=== PATIENT | male | born 1940 | race Caucasian/White ===

== ENCOUNTER 2018-12-20 11:36 | Inpatient (IN) | payer MEDICARE, MEDICAID ==
[~2018-12-20] VITALS: Ht 188 cm; Wt 128.6 kg
--- NOTE | 2018-12-20 12:17 | PHYS DOC ---
Past History Past Medical History: Anemia, Anxiety, CHF, Depression, DVT, Hypertension, Seizure, Other Additional Past Medical Histor: SLEEP APNEA, HALLUCINATIONS, EDEMA, KIERAN, SEPSIS, HYPOKALEMIA, BRADYCARDIA, Past Surgical History: Other Alcohol Use: None Drug Use: None Adult General Chief Complaint Chief Complaint: PSYCH EVALUATION HPI HPI 78-year-old male presents for medical clearance for psychiatric evaluation. The patient was reported to be making inappropriate statements toward females his care facility. He was also yelling at staff. The patient denies any medical complaints to me. He does have some bilateral lower extremity venous insufficiency and swelling. The coloring of his lower legs has not changed recently. He has no other complaints at this time. Review of Systems Review of Systems Constitutional: Denies fever or chills [] Eyes: Denies change in visual acuity, redness, or eye pain [] HENT: Denies nasal congestion or sore throat [] Respiratory: Denies cough or shortness of breath [] Cardiovascular: No additional information not addressed in HPI [] GI: Denies abdominal pain, nausea, vomiting, bloody stools or diarrhea [] : Denies dysuria or hematuria [] Musculoskeletal: Denies back pain or joint pain [] Integument: Red lower extremity is bilaterally[] Neurologic: Denies headache, focal weakness or sensory changes [] Endocrine: Denies polyuria or polydipsia [] All other systems were reviewed and found to be within normal limits, except as documented in this note. Allergies Allergies Allergies Coded Allergies Type Severity Reaction Last Updated Verified No Known Drug Allergies 12/20/18 No Physical Exam Physical Exam Constitutional: Well developed, obese, well nourished, no acute distress, non- toxic appearance. [] HENT: Normocephalic, atraumatic, bilateral external ears normal, oropharynx moist, no oral exudates, nose normal. [] Eyes: PERRLA, EOMI, conjunctiva normal, no discharge. [] Neck: Normal range of motion, no tenderness, supple, no stridor. [] Cardiovascular:Heart rate regular rhythm, no murmur [] Lungs & Thorax: Bilateral breath sounds clear to auscultation [] Abdomen: Bowel sounds normal, soft, no tenderness, no masses, no pulsatile masses. [] Skin: Warm, dry, no rash. [] Back: No tenderness, no CVA tenderness. [] Extremities: No tenderness, no cyanosis, no clubbing, ROM intact. Bilateral lower extremity edema 2+, redness of lower extremity without warmth. [] Neurologic: Alert and oriented X 3, normal motor function, normal sensory function, no focal deficits noted. [] Psychologic: Affect normal, judgement normal, mood normal. [] Current Patient Data Vital Signs Vital Signs Date Time Temp Pulse Resp B/P (MAP) Pulse Ox O2 Delivery O2 Flow Rate FiO2 12/20/18 11:43 97.9 60 18 97 Room Air EKG EKG [] Radiology/Procedures Radiology/Procedures [] Course & Med Decision Making Course & Med Decision Making Pertinent Labs and Imaging studies reviewed. (See chart for details) The patient's urinalysis is unremarkable. His EKG shows type I heart block significantly delayed NC interval. Urinalysis suggests possible infection. I will treat him with 1 g Rocephin IM and then wait for cultures. He is medically stable for admission to [facility]. [] Dragon Disclaimer Dragon Disclaimer This electronic medical record was generated, in whole or in part, using a voice recognition dictation system. Departure Departure: Impression: Primary Impression: Medical clearance for psychiatric admission Additional Impression: UTI (urinary tract infection) Disposition: ADMITTED INPATIENT Condition: STABLE Referrals: FELA BAIG (PCP) Problem Qualifiers Additional Impression: UTI (urinary tract infection) Urinary tract infection type: acute cystitis Hematuria presence: with hematuria Qualified Codes: N30.01 - Acute cystitis with hematuria RAYMOND BARCLAY DO Dec 20, 2018 12:17
[2018-12-20 12:18] LABS: BASO % 0 % (0-3); EOS # 0.1 x10^3/uL (0.0-0.7); EOS % 2 % (0-3); HEMOGLOBIN 12.4 g/dL (13.0-17.5); LYMPH # 1.1 x10^3/uL (1.0-4.8); LYMPH % 18 % (24-48); MEAN CORPUSCULAR HEMOGLOBIN 26 pg (25-35); MEAN CORPUSCULAR HGB CONC 32 g/dL (31-37); MEAN CORPUSCULAR VOLUME 81 fL (79-100); MONO # 0.6 x10^3/uL (0.0-1.1); MONO % 9 % (0-9); NEUT # 4.4 x10^3uL (1.8-7.7); NEUT % 71 % (31-73); PLATELET COUNT 132 x10^3/uL (140-400); RED BLOOD COUNT 4.84 x10^6/uL (4.30-5.70); RED CELL DISTRIBUTION WIDTH 22.5 % (11.5-14.5); WHITE BLOOD COUNT 6.2 x10^3/uL (4.0-11.0)
[2018-12-20 12:28] LABS: ALBUMIN 3.1 g/dL (3.4-5.0); ALBUMIN/GLOBULIN RATIO 0.7 (1.0-1.7); CREATININE 1.3 mg/dL (0.7-1.3); GFR 53.3; MAGNESIUM 2.2 mg/dL (1.8-2.4); POTASSIUM 3.5 mmol/L (3.5-5.1); TOTAL BILIRUBIN 0.3 mg/dL (0.2-1.0); TOTAL PROTEIN 7.7 g/dL (6.4-8.2)
--- NOTE | 2018-12-20 12:42 | EKG ---
[address] [address] Test Date: 2018-12-20 Test Time: 12:17:52 Pat Name: USAMA LEONARD Department: Room: Gender: M Supervisor Costuming: AQUILINO : 1940 Requested By: RAYMOND BARCLAY Order Number: [id number] Reading MD: Adarsh Carballo MD Measurements Intervals [place] Rate: 56 P: AL: QRS: -3 QRSD: 110 T: 66 QT: 446 QTc: 433 Interpretive Statements SR 1ST DEGREE AVB Electronically Signed On 01-05-2019 14:53:50 CDT by Adarsh Carballo MD
[2018-12-20 12:47] LABS: BILIRUBIN,URINE NEG (NEG); CLARITY,URINE CLOUDY; COLOR,URINE YELLOW; GLUCOSE,URINE NEG (NEG); NITRITE,URINE NEG (NEG); RBC,URINE 0 /HPF (0-2); UROBILINOGEN,URINE 0.2 mg/dL (0.2 mg/dL)
[2018-12-20 12:48] LABS: BACTERIA,URINE FEW /HPF (0-FEW); SQUAMOUS EPITHELIAL CELL,UR OCC /LPF; YEAST,URINE PRESENT /HPF
[2018-12-20] MEDS ORDERED: cefTRIAXone IM 1 GM VIAL IM ONE (13:00)
[2018-12-20 13:05] LABS: ANISOCYTOSIS SLIGHT; PLT ESTIMATE DECREASED (ADEQUATE); POLYCHROMASIA SLIGHT
[2018-12-20 13:06] LABS: SPHEROCYTES OCC
[2018-12-20] MEDS ORDERED: MAG HYDROX/AL HYDROX/SIMETH 30 ML ORAL.SUSP PO PRN (14:30)
[2018-12-20] MEDS ORDERED: METHYL SALICYLATE/MENTHOL TOPICAL OINTMENT 57GM TUBE. TP PRN (14:30)
[2018-12-20] MEDS ORDERED: ACETAMINOPHEN 325 MG TABLET PO PRN (14:30)
[2018-12-20] MEDS ORDERED: MAGNESIUM HYDROXIDE 2,400 MG/30 ML ORAL.SUSP. PO PRN (14:30)
[2018-12-20 14:41] VITALS: BP 108/73
[2018-12-20] MEDS ORDERED: POLY17PO5 PO (15:31)
[2018-12-20] MEDS ORDERED: PENT400T7 PO (15:31)
[2018-12-20] MEDS ORDERED: SENN8.6T99 PO (15:31)
[2018-12-20] MEDS ORDERED: FURO80TA72 PO (15:31)
[2018-12-20] MEDS ORDERED: IBUP400T18 PO (15:31)
[2018-12-20] MEDS ORDERED: POTA10TA10 PO (15:31)
[2018-12-20] MEDS ORDERED: ALBU2.5V8 INH (15:31)
[2018-12-20] MEDS ORDERED: MECL25TA3 PO (15:31)
[2018-12-20] MEDS ORDERED: LORA-254 PO (15:31)
[2018-12-20] MEDS ORDERED: TAMS0.4C97 PO (15:31)
[2018-12-20] MEDS ORDERED: TRAZ-120 PO (15:31)
[2018-12-20] MEDS ORDERED: DIVA250T14 PO (15:31)
[2018-12-20] MEDS ORDERED: ALBUTEROL SULFATE 2.5 MG/3 ML NEBU. INH PRN (16:15)
[2018-12-20] MEDS ORDERED: LORazepam 0.5 MG TABLET PO PRN (16:15)
[2018-12-20] MEDS ORDERED: IBUPROFEN 400 MG TABLET. PO PRN (16:15)
[2018-12-20] MEDS ORDERED: IBUPROFEN 200 MG TABLET PO PRN (16:15)
[2018-12-20] MEDS ORDERED: MECLIZINE 12.5 MG TABLET. PO PRN (16:30)
[2018-12-20 16:59] VITALS: BP 114/73
[2018-12-20] MEDS: PENTOXIFYLLINE ER 400 MG TABLET.ER. PO SCH (18:03)
[2018-12-20] MEDS: FUROSEMIDE 80 MG TABLET PO SCH (18:03)
--- NOTE | 2018-12-20 18:43 | PDOC ---
Exam Note: Preet Note: Please also refer to the separate dictated note~for this date of service dictated separately.~Patient seen individually. Discussed the patient with Nursing staff reviewed the chart.~Reviewed interim history and current functioning. Reviewed vital signs,~Labs/ Radiology~and current medications noted below. Continue current treatment with the changes noted in the dictated addendum note Assessment: Vital Signs/I&O: Vital Signs Date Time Temp Pulse Resp B/P (MAP) Pulse Ox O2 Delivery O2 Flow Rate FiO2 12/20/18 16:59 97.6 78 18 114/73 (87) 93 12/20/18 11:43 Room Air Labs: Laboratory Tests Test 12/20/18 12:00 12/20/18 12:07 White Blood Count 6.2 x10^3/uL (4.0-11.0) Red Blood Count 4.84 x10^6/uL (4.30-5.70) Hemoglobin 12.4 g/dL (13.0-17.5) L Hematocrit 39.0 % (39.0-53.0) Mean Corpuscular Volume 81 fL (79-100) Mean Corpuscular Hemoglobin 26 pg (25-35) Mean Corpuscular Hemoglobin Concent 32 g/dL (31-37) Red Cell Distribution Width 22.5 % (11.5-14.5) H Platelet Count 132 x10^3/uL (140-400) L Neutrophils (%) (Auto) 71 % (31-73) Lymphocytes (%) (Auto) 18 % (24-48) L Monocytes (%) (Auto) 9 % (0-9) Eosinophils (%) (Auto) 2 % (0-3) Basophils (%) (Auto) 0 % (0-3) Neutrophils # (Auto) 4.4 x10^3uL (1.8-7.7) Lymphocytes # (Auto) 1.1 x10^3/uL (1.0-4.8) Monocytes # (Auto) 0.6 x10^3/uL (0.0-1.1) Eosinophils # (Auto) 0.1 x10^3/uL (0.0-0.7) Basophils # (Auto) 0.0 x10^3/uL (0.0-0.2) Platelet Estimate Decreased (ADEQUATE) Polychromasia Slight Anisocytosis Slight Spherocytes Occ Sodium Level 144 mmol/L (136-145) Potassium Level 3.5 mmol/L (3.5-5.1) Chloride Level 105 mmol/L (98-107) Carbon Dioxide Level 30 mmol/L (21-32) Anion Gap 9 (6-14) Blood Urea Nitrogen 27 mg/dL (8-26) H Creatinine 1.3 mg/dL (0.7-1.3) Estimated GFR (Cockcroft-Gault) 53.3 BUN/Creatinine Ratio 21 (6-20) H Glucose Level 94 mg/dL (70-99) Calcium Level 9.0 mg/dL (8.5-10.1) Magnesium Level 2.2 mg/dL (1.8-2.4) Total Bilirubin 0.3 mg/dL (0.2-1.0) Aspartate Amino Transferase (AST) 24 U/L (15-37) Alanine Aminotransferase (ALT) 30 U/L (16-63) Alkaline Phosphatase 96 U/L (46-116) Total Protein 7.7 g/dL (6.4-8.2) Albumin 3.1 g/dL (3.4-5.0) L Albumin/Globulin Ratio 0.7 (1.0-1.7) L Urine Collection Type Unknown Urine Color Yellow Urine Clarity Cloudy Urine pH 6.0 Urine Specific [place] 1.015 Urine Protein Neg (NEG-TRACE) Urine Glucose (UA) Neg mg/dL (NEG) Urine Ketones (Stick) Neg mg/dL (NEG) Urine Blood Neg (NEG) Urine Nitrite Neg (NEG) Urine Bilirubin Neg (NEG) Urine Urobilinogen Dipstick 0.2 mg/dL (0.2 mg/dL) Urine Leukocyte Esterase Small (NEG) Urine RBC 0 /HPF (0-2) Urine WBC 11-20 /HPF (0-4) Urine Squamous Epithelial Cells Occ /LPF Urine Bacteria Few /HPF (0-FEW) Urine Yeast Present /HPF Current Medications: Meds: Current Medications Medications (Trade) Dose Ordered Sig/Daren Route PRN Reason Start Time Stop Time Status Last Admin Dose Admin Ceftriaxone Sodium (Rocephin Im) 1 gm 1X ONCE IM 12/20/18 13:00 12/20/18 13:01 DC 12/20/18 13:03 Furosemide (Lasix) 100 mg [id number] PO 12/20/18 17:00 12/20/18 18:04 Pentoxifylline (TRENtal) 400 mg TIDWMEALS PO 12/20/18 17:00 12/20/18 18:04 I have reviewed the current psychotropics carefully including drug interactions. Risk benefit ratio favors no change other than as noted in my dictated progress note. Diagnosis: Problems: (1) Anxiety disorder (2) Dementia, vascular, with delusions (3) Dementia, vascular, with depression (4) Dementia in Alzheimer's disease with delusions (5) Dementia in Alzheimer's disease with depression (6) Impulse control disorder RANDALL SCHWARZ MD Dec 20, 2018 18:43
[2018-12-20] MEDS: traZODone 50 MG TABLET. PO SCH (20:10)
[2018-12-20] MEDS: POTASSIUM CHLORIDE 10 MEQ TABLET.ER. PO SCH (20:11)
[2018-12-21 06:00] VITALS: BP 90/68
[2018-12-21 08:18] LABS: BASO % 0 % (0-3); EOS # 0.2 x10^3/uL (0.0-0.7); EOS % 3 % (0-3); HEMATOCRIT 38.8 % (39.0-53.0); HEMOGLOBIN 12.4 g/dL (13.0-17.5); LYMPH # 1.1 x10^3/uL (1.0-4.8); LYMPH % 19 % (24-48); MEAN CORPUSCULAR HEMOGLOBIN 26 pg (25-35); MEAN CORPUSCULAR HGB CONC 32 g/dL (31-37); MEAN CORPUSCULAR VOLUME 81 fL (79-100); MONO # 0.5 x10^3/uL (0.0-1.1); MONO % 8 % (0-9); NEUT # 4.2 x10^3uL (1.8-7.7); NEUT % 70 % (31-73); PLATELET COUNT 129 x10^3/uL (140-400); RED BLOOD COUNT 4.82 x10^6/uL (4.30-5.70); RED CELL DISTRIBUTION WIDTH 22.5 % (11.5-14.5); WHITE BLOOD COUNT 5.9 x10^3/uL (4.0-11.0)
[2018-12-21 08:42] LABS: ALBUMIN 3.1 g/dL (3.4-5.0); ALBUMIN/GLOBULIN RATIO 0.7 (1.0-1.7); CALCIUM 9.1 mg/dL (8.5-10.1); CREATININE 1.2 mg/dL (0.7-1.3); GFR 58.4; MAGNESIUM 2.3 mg/dL (1.8-2.4); POTASSIUM 3.6 mmol/L (3.5-5.1); TOTAL BILIRUBIN 0.4 mg/dL (0.2-1.0); TOTAL PROTEIN 7.6 g/dL (6.4-8.2)
[2018-12-21 08:46] LABS: VAL ACID < 3 mcg/mL (50-100)
[2018-12-21] MEDS: PENTOXIFYLLINE ER 400 MG TABLET.ER. PO SCH ×3 (08:49→16:12)
[2018-12-21] MEDS: POTASSIUM CHLORIDE 10 MEQ TABLET.ER. PO SCH ×2 (08:50→20:43)
[2018-12-21] MEDS: FUROSEMIDE 80 MG TABLET PO SCH ×2 (08:50→16:12)
[2018-12-21] MEDS: NYSTATIN TOPICAL POWDER 15GM BOTTLE. TP SCH ×2 (08:55→20:43)
[2018-12-21] MEDS: TAMSULOSIN 0.4 MG CAP.ER.24H. PO SCH (08:55)
[2018-12-21] MEDS: POLYETHYLENE GLYCOL 3350 17 GM PACKET. PO SCH (08:55)
[2018-12-21] MEDS: SENNOSIDES 8.6 MG TABLET PO SCH (08:57)
[2018-12-21] MEDS ORDERED: DIVALPROEX ER 250 MG TAB.ER.24H. PO SCH (09:00)
[2018-12-21 11:34] LABS: THYROID STIM HORMONE (TSH) 2.562 uIU/mL (0.358-3.740)
[2018-12-21 12:12] LABS: THYROXINE 6.9 ug/dL (4.5-12.0)
[2018-12-21 15:30] VITALS: BP 109/72
--- NOTE | 2018-12-21 16:17 | RAD ---
CHEST AP ONLY History: Shortness of breath. Comparison: None. Findings: No consolidation or pleural effusion. Normal heart size. Linear bibasilar atelectasis or scarring. Impression: 1. No acute cardiopulmonary process. Electronically signed by: Joshua Aleman DO (12/21/2018 4:14 PM) [facility]
--- NOTE | 2018-12-21 19:55 | HP ---
ADMIT DATE: 12/20/2018 PSYCHIATRIC ADMISSION HISTORY/EVALUATION This late entry, 12/20, covers the elements not covered in my initial note. SUBJECTIVE: I met with the patient on the evening of 12/20. Discussed with nursing staff, reviewed the chart. Previously reviewed information with Heidi Sibley, employee communications coordinator. IDENTIFYING DATA: The patient is a 78-year-old male referred to us from [facility] by Dr. Thai Simons, his primary care physician, on account of worsening confusion and having significant sexually aggressive behaviors with females. He was attempting to go outside even though he has a WanderGuard. He was acting out sexually inappropriate, "I will show you something hard." He was combative with peers, agitated with staff, cursing, hitting, kicking, asking staff for kisses and then cursing. Interventions at the shelter included UA was negative, redirections, WanderGuard was placed. He was assigned to male staff member to provide care, treated on Ativan, Depakote, trazodone, all of which failed resulting in this referral. CHIEF COMPLAINT: "No." The patient was seen individually on the evening of 12/20. He is oriented to himself, seated in a wheelchair. HISTORY OF PRESENT ILLNESS: The patient has a history of dementia, Alzheimer's vascular type. He has been residing at [facility] for some time, but more recently has been getting more agitated, delusional, aggressive, disruptive, sexually inappropriate as noted. He has had sleep and appetite changes. No clear history of bipolar disorder, suicidal or homicidal ideation. PAST PSYCHIATRIC HISTORY: As above. MEDICAL HISTORY: Seizure disorder, CHF, cellulitis, left lower extremity, hypertension, anemia, obesity and sleep apnea. ACCU-CHEKS: None. DIET: Regular. Takes medications whole. Ambulates with wheelchair. ALLERGIES: Negative. CODE STATUS: DNR. He did receive IM Rocephin x 1 in the ER. Culture is pending. CURRENT PSYCHOTROPICS: Ativan 0.5 mg b.i.d. p.r.n., Depakote delayed release 250 mg daily, trazodone 25 mg at bedtime. FAMILY HISTORY: Noncontributory. SOCIAL HISTORY: No history of alcohol, drug abuse, physical, sexual or elder abuse. He is not known to be a perpetrator. REACTION TO HOSPITALIZATION: The patient oblivious of it. ASSETS: Supportive family, stable living at the above facility. MENTAL STATUS EXAMINATION: The patient was seen individually on the evening of 12/20. He is oriented to himself. He is in a wheelchair. Not very verbal. Insight, judgment, recent and remote memory, attention, concentration, fund of knowledge poor, consistent with his diagnosis. IMPRESSION: Major neurocognitive disorder, Alzheimer vascular with delusion, depression, behavioral disturbance; anxiety disorder, unspecified; impulse control disorder, unspecified. Rest as above. PLAN: Admit to Geropsychiatry Unit at [facility]. I will see the patient daily individually from a psychiatric standpoint. Medical followup per Dr. Ritter. We will await the culture and treat as clinically appropriate. Valproic acid level is less than 3 and we will increase the Depakote to Depakote extended release 500 mg p.o. at bedtime. Check CBC, CMP, valproic acid level in 3 days. Continue rest of the psychotropics for now. Estimated length of stay 10-12 days. DISPOSITION: Plans back to shelter when stable. RANDALL SHCWARZ MD DR: FELIPE/katya JOB#: [id number] / [id number]
--- NOTE | 2018-12-21 20:02 | PDOC ---
Exam Note: Preet Note: Please also refer to the separate dictated note~for this date of service dictated separately.~Patient seen individually. Discussed the patient with Nursing staff reviewed the chart.~Reviewed interim history and current functioning. Reviewed vital signs,~Labs/ Radiology~and current medications noted below. Continue current treatment with the changes noted in the dictated addendum note Assessment: Vital Signs/I&O: Vital Signs Date Time Temp Pulse Resp B/P (MAP) Pulse Ox O2 Delivery O2 Flow Rate FiO2 12/21/18 15:30 97.3 72 16 109/72 (84) 95 12/20/18 11:43 Room Air I & O 12/20/18 12/20/18 12/21/18 15:00 23:00 07:00 Intake Total 240 ml 240 ml Balance 240 ml 240 ml Labs: Laboratory Tests Test 12/21/18 07:34 White Blood Count 5.9 x10^3/uL (4.0-11.0) Red Blood Count 4.82 x10^6/uL (4.30-5.70) Hemoglobin 12.4 g/dL (13.0-17.5) L Hematocrit 38.8 % (39.0-53.0) L Mean Corpuscular Volume 81 fL (79-100) Mean Corpuscular Hemoglobin 26 pg (25-35) Mean Corpuscular Hemoglobin Concent 32 g/dL (31-37) Red Cell Distribution Width 22.5 % (11.5-14.5) H Platelet Count 129 x10^3/uL (140-400) L Neutrophils (%) (Auto) 70 % (31-73) Lymphocytes (%) (Auto) 19 % (24-48) L Monocytes (%) (Auto) 8 % (0-9) Eosinophils (%) (Auto) 3 % (0-3) Basophils (%) (Auto) 0 % (0-3) Neutrophils # (Auto) 4.2 x10^3uL (1.8-7.7) Lymphocytes # (Auto) 1.1 x10^3/uL (1.0-4.8) Monocytes # (Auto) 0.5 x10^3/uL (0.0-1.1) Eosinophils # (Auto) 0.2 x10^3/uL (0.0-0.7) Basophils # (Auto) 0.0 x10^3/uL (0.0-0.2) Sodium Level 146 mmol/L (136-145) H Potassium Level 3.6 mmol/L (3.5-5.1) Chloride Level 107 mmol/L (98-107) Carbon Dioxide Level 33 mmol/L (21-32) H Anion Gap 6 (6-14) Blood Urea Nitrogen 26 mg/dL (8-26) Creatinine 1.2 mg/dL (0.7-1.3) Estimated GFR (Cockcroft-Gault) 58.4 BUN/Creatinine Ratio 22 (6-20) H Glucose Level 85 mg/dL (70-99) Calcium Level 9.1 mg/dL (8.5-10.1) Magnesium Level 2.3 mg/dL (1.8-2.4) Total Bilirubin 0.4 mg/dL (0.2-1.0) Aspartate Amino Transferase (AST) 25 U/L (15-37) Alanine Aminotransferase (ALT) 29 U/L (16-63) Alkaline Phosphatase 96 U/L (46-116) Total Protein 7.6 g/dL (6.4-8.2) Albumin 3.1 g/dL (3.4-5.0) L Albumin/Globulin Ratio 0.7 (1.0-1.7) L Triglycerides Level 65 mg/dL (0-150) Cholesterol Level 183 mg/dL (0-200) LDL Cholesterol, Calculated 94 mg/dL (0-100) VLDL Cholesterol, Calculated 13 mg/dL (0-40) Non-HDL Cholesterol Calculated 107 mg/dL (0-129) HDL Cholesterol 76 mg/dL (40-60) H Cholesterol/HDL Ratio 2.0 Thyroid Stimulating Hormone (TSH) 2.562 uIU/mL (0.358-3.740) Thyroxine (T4) 6.9 ug/dL (4.5-12.0) Total Triiodothyronine (TT3) 92 ng/dL (71-180) Valproic Acid Level < 3 mcg/mL (50-100) L Valproic Acid Last Dose Date 12/20/18 Valproic Acid Last Dose Time 2100 Current Medications: Meds: Current Medications Medications (Trade) Dose Ordered Sig/Daren Route PRN Reason Start Time Stop Time Status Last Admin Dose Admin Divalproex Sodium (Depakote Er) 250 mg DAILY PO 12/21/18 09:00 12/21/18 19:32 DC 12/21/18 08:56 Polyethylene Glycol (miraLAX) 17 gm DAILY PO 12/21/18 09:00 12/21/18 08:56 Sennosides (Senna) 8.6 mg DAILY PO 12/21/18 09:00 12/21/18 08:57 Tamsulosin HCl (Flomax) 0.4 mg DAILY PO 12/21/18 09:00 12/21/18 08:56 Trazodone HCl (Desyrel) 25 mg QHS PO 12/20/18 21:00 12/20/18 20:11 Potassium Chloride (Klor-Con) 30 meq BID PO 12/20/18 21:00 12/21/18 08:50 Nystatin (Nystop) 1 nancy BID TP 12/21/18 09:00 12/21/18 08:56 I have reviewed the current psychotropics carefully including drug interactions. Risk benefit ratio favors no change other than as noted in my dictated progress note. Diagnosis: Problems: (1) Medical clearance for psychiatric admission (2) Anxiety disorder (3) Impulse control disorder (4) Dementia, vascular, with depression (5) Dementia, vascular, with delusions (6) Dementia in Alzheimer's disease with depression (7) Dementia in Alzheimer's disease with delusions RANDALL SCHWARZ MD Dec 21, 2018 20:02
[2018-12-21] MEDS: DIVALPROEX ER 500 MG TAB.ER.24H PO SCH (20:44)
[2018-12-21] MEDS: traZODone 50 MG TABLET. PO SCH (20:44)
--- NOTE | 2018-12-21 23:29 | PN ---
DATE: 12/21/2018 PSYCHIATRIC PROGRESS NOTE SUBJECTIVE: The patient was seen individually in the evening of 12/21/2018. Discussed with nursing staff, reviewed the chart. The patient slept 5-3/4 hours previous night. He has been out of the room to the day room. Towards the evening, he was somewhat sexually inappropriate with a female aide. Venous Doppler is being done. REVIEW OF SYSTEMS: Ambulation impaired. No CV, , pulmonary, eye, ENT system symptoms on review. Reliability poor. MENTAL STATUS EXAM: Oriented to himself. Insight, judgment, recent and remote memory, attention, concentration, fund of knowledge poor, consistent with his diagnosis. IMPRESSION: Major neurocognitive disorder, Alzheimer, vascular with delusion, depression, behavioral disturbance; anxiety disorder, unspecified; impulse control disorder, unspecified. PLAN: Increase Depakote ER to 500 mg at bedtime. Check CBC, CMP, valproic acid level in [address] Ritter. He has ordered a venous Doppler. Continue Ativan p.r.n., trazodone, and Zyprexa was added p.r.n. earlier. His staff had called me for his inappropriate behaviors. MAN Jhoana SCHWARZ MD DR: FELIPE/katya JOB#: [id number] / [id number]
[2018-12-22 01:10] LABS: HEMOGLOBIN A1C 5.5 % (4.8-5.6)
[2018-12-22 06:08] VITALS: BP 103/60
--- NOTE | 2018-12-22 07:38 | RAD ---
Bilateral lower extremity arterial ultrasound History: Cold feet Findings: Multiple grayscale, color, and duplex spectral analysis sonographic images were acquired of the lower extremity arteries bilaterally. There are no previous similar exams. There are relatively lower velocities of the right common femoral artery through right proximal superficial femoral artery comparing with the left. There is increasing velocity between the right proximal and distal superficial femoral arteries although discrete stenosis not well demonstrated in this region. No vessel occlusion is demonstrated. There are mostly triphasic and biphasic waveforms bilaterally other than more monophasic wave form of the proximal right posterior tibial artery. Velocities in cm/sec: RIGHT Common femoral artery 47 Profunda femoris artery 22 Proximal SFA 46 Mid SFA 63 Distal SFA 100 Popliteal artery 53 Posterior tibial artery 49 proximally and 22 distally Peroneal artery 54 Anterior tibial artery 86 Dorsalis pedis artery 48 LEFT: Common femoral artery 64 Profunda femoris artery 37 Proximal SFA 77 Mid SFA 66 Distal SFA 44 Popliteal artery 45 Posterior tibial artery 45 Peroneal artery 44 Anterior tibial artery 40 Dorsalis pedis artery 35 Impression: 1. There is relative increased velocity between the proximal and distal right superficial femoral artery although discrete stenosis not well demonstrated by this exam. No vessel occlusion is demonstrated. There are some lower velocities of the proximal right superficial femoral artery and common femoral artery comparing with the left, possible component of inflow disease on the right. Electronically signed by: Ajay Taveras MD (12/22/2018 7:35 AM) [facility]
[2018-12-22] MEDS: PENTOXIFYLLINE ER 400 MG TABLET.ER. PO SCH ×3 (08:00→17:07)
[2018-12-22] MEDS: FUROSEMIDE 80 MG TABLET PO SCH ×2 (08:50→17:07)
[2018-12-22] MEDS: POTASSIUM CHLORIDE 10 MEQ TABLET.ER. PO SCH ×2 (08:54→20:33)
[2018-12-22] MEDS: POLYETHYLENE GLYCOL 3350 17 GM PACKET. PO SCH (08:57)
--- NOTE | 2018-12-22 12:02 | CONS ---
DATE OF CONSULTATION: 12/21/2018 REASON FOR CONSULTATION: Medical management. HISTORY OF PRESENT ILLNESS: The patient is a 78-year-old male patient, a resident at [facility] who was admitted on account of attempting to elope, sexually inappropriate, combative with peers, agitated with staff, cursing, hitting, kicking, all this in a background of impulse control disorder. Medically, the patient is known to have congestive heart failure, hypertension, anemia, morbid obesity with obstructive sleep apnea. He has severe peripheral arterial disease as well as seizure disorder. PAST SURGICAL HISTORY: Significant for bilateral inguinal hernia repair. ALLERGIES: He has no known drug allergies. MEDICATIONS: He is currently on following medications: He is on albuterol sulfate 2 puffs every 6 hours, tamsulosin 0.4 mg daily, pentoxifylline 400 mg 3 times a day, ibuprofen 200 mg every 6 hours, divalproex 250 mg daily, trazodone 25 mg at bedtime, lorazepam 0.5 mg twice a day as needed, potassium chloride 30 mEq twice a day, furosemide 80 mg p.o. b.i.d., polyethylene glycol 17 grams daily, senna 1 tablet daily, meclizine 25 mg every 6 hours. FAMILY HISTORY: Noncontributory. SOCIAL HISTORY: The patient lives in [facility]. He does not smoke, drink alcohol or use recreational drugs. He quit smoking and drinking, according to him, 20-25 years ago. PHYSICAL EXAMINATION: GENERAL: On examining him, he was sitting comfortably in his chair, in no apparent respiratory distress. There was no pallor, jaundice, cyanosis, or thyromegaly. No jugular venous distension. He has marked bilateral lower limb edema. VITAL SIGNS: His heart rate was 58, blood pressure was 90/68, temperature was 96.7, respiratory rate was 18 and oxygen saturation was 94%. HEAD, EYES, EARS, NOSE AND THROAT: Showed normocephalic, atraumatic. NECK: Supple. HEART: Showed normal first and second heart sounds. No gallop or murmur. CHEST: Clear to auscultation. No crepitation or rhonchi. ABDOMEN: Distended, soft, nontender. NEUROLOGIC: He is demented; however, all his cranial nerves are intact. EXTREMITIES: He moves extremities without difficulty, although he is mostly bedbound, chair bound. LABORATORY DATA: Showed a white cell count 5900, hemoglobin 12, hematocrit 39, MCV 81 and platelet count of 129,000 with normal manual differential. Serum sodium was 146, potassium 3.6, chloride 107, bicarbonate 33, anion gap of 6, BUN 26, creatinine was 1.2, estimated GFR was 58 mL per minute. His glucose was 85, calcium was 9.1, magnesium was 2.3. His serum iron is 44, TIBC was high at 389 and iron saturation was 11. Total bilirubin, AST, ALT, alkaline phosphatase were normal. Total protein was 7.6, albumin 3.1. His serum triglycerides were 65, total cholesterol 183, LDL was 94, VLDL was 13, HDL was 76 and the ratio was 2. His TSH, total T4 and total T3 are all normal. Urinalysis showed the urine was yellow, cloudy with a pH of 6, specific gravity 1.015; the urine was negative for protein, glucose, ketones, blood, nitrite. There was small amount of leukocyte esterase, no rbc's, 11-20 wbc's, and very few bacteria. His toxic screen was unremarkable. IMPRESSION: In summary, this is a 78-year-old male patient who was admitted on account of attempting to elope, sexually inappropriate, combative with peers, agitated with staff, cursing, hitting, kicking. Medically, he is known to have hypertension, congestive heart failure, severe peripheral vascular disease, anemia, obesity, obstructive sleep apnea and seizure disorder. He has also anemia that is microcytic, hypochromic. He has also chronic kidney disease and his iron parameters are consistent with iron deficiency anemia. He has also hypokalemia and his feet are dusky and cold consistent with severe peripheral vascular disease. PLAN: My plan is to arrange for him to have a chest x-ray as well as bilateral arterial Doppler ultrasound and we will decide the further management accordingly. Thank you, Dr. Ambriz, for allowing me to participate in the care of this patient. KENJI OLSEN MD DR: DO/katya JOB#: [id number] / [id number]
[2018-12-22] MEDS: SENNOSIDES 8.6 MG TABLET PO SCH (12:09)
[2018-12-22] MEDS: TAMSULOSIN 0.4 MG CAP.ER.24H. PO SCH (12:09)
[2018-12-22] MEDS: NYSTATIN TOPICAL POWDER 15GM BOTTLE. TP SCH ×2 (12:10→20:33)
[2018-12-22 16:26] VITALS: BP 144/83
[2018-12-22] MEDS: traZODone 50 MG TABLET. PO SCH (20:31)
[2018-12-22] MEDS: DIVALPROEX ER 500 MG TAB.ER.24H PO SCH (20:31)
--- NOTE | 2018-12-22 21:47 | PDOC ---
Exam Note: Preet Note: Please also refer to the separate dictated note~for this date of service dictated separately.~Patient seen individually. Discussed the patient with Nursing staff reviewed the chart.~Reviewed interim history and current functioning. Reviewed vital signs,~Labs/ Radiology~and current medications noted below. Continue current treatment with the changes noted in the dictated addendum note Assessment: Vital Signs/I&O: Vital Signs Date Time Temp Pulse Resp B/P (MAP) Pulse Ox O2 Delivery O2 Flow Rate FiO2 12/22/18 16:26 97.2 68 18 144/83 (103) 97 12/20/18 11:43 Room Air I & O 12/21/18 12/21/18 12/22/18 15:00 23:00 07:00 Intake Total 960 ml 120 ml Balance 960 ml 120 ml Current Medications: I have reviewed the current psychotropics carefully including drug interactions. Risk benefit ratio favors no change other than as noted in my dictated progress note. Diagnosis: Problems: (1) Anxiety disorder (2) Impulse control disorder (3) Dementia, vascular, with depression (4) Dementia, vascular, with delusions (5) Dementia in Alzheimer's disease with depression (6) Dementia in Alzheimer's disease with delusions RANDALL SCHWARZ MD Dec 22, 2018 21:46
[2018-12-23 06:16] VITALS: BP 97/70
[2018-12-23] MEDS: TAMSULOSIN 0.4 MG CAP.ER.24H. PO SCH (09:09)
[2018-12-23] MEDS: PENTOXIFYLLINE ER 400 MG TABLET.ER. PO SCH ×3 (09:10→18:44)
[2018-12-23] MEDS: FUROSEMIDE 80 MG TABLET PO SCH ×2 (09:10→18:44)
[2018-12-23] MEDS: SENNOSIDES 8.6 MG TABLET PO SCH (09:10)
[2018-12-23] MEDS: POTASSIUM CHLORIDE 10 MEQ TABLET.ER. PO SCH ×2 (09:11→20:23)
[2018-12-23] MEDS: NYSTATIN TOPICAL POWDER 15GM BOTTLE. TP SCH ×2 (09:11→20:24)
[2018-12-23] MEDS: POLYETHYLENE GLYCOL 3350 17 GM PACKET. PO SCH (09:11)
[2018-12-23] MEDS: QUEtiapine 25 MG TABLET. PO SCH ×3 (09:12→18:44)
[2018-12-23 16:26] VITALS: BP 104/56
[2018-12-23] MEDS: traZODone 50 MG TABLET. PO SCH (20:23)
[2018-12-23] MEDS: DIVALPROEX ER 500 MG TAB.ER.24H PO SCH (20:23)
[2018-12-23] MEDS: DIVALPROEX 125 MG CAP.SPRINK PO SCH (21:16)
--- NOTE | 2018-12-23 21:43 | PDOC ---
Exam Note: Preet Note: Please also refer to the separate dictated note~for this date of service dictated separately.~Patient seen individually. Discussed the patient with Nursing staff reviewed the chart.~Reviewed interim history and current functioning. Reviewed vital signs,~Labs/ Radiology~and current medications noted below. Continue current treatment with the changes noted in the dictated addendum note Assessment: Vital Signs/I&O: Vital Signs Date Time Temp Pulse Resp B/P (MAP) Pulse Ox O2 Delivery O2 Flow Rate FiO2 12/23/18 16:26 97.0 55 16 104/56 (72) 96 12/20/18 11:43 Room Air I & O 12/22/18 12/22/18 12/23/18 15:00 23:00 07:00 Intake Total 720 ml 240 ml 120 ml Balance 720 ml 240 ml 120 ml Current Medications: Meds: Current Medications Medications (Trade) Dose Ordered Sig/Daren Route PRN Reason Start Time Stop Time Status Last Admin Dose Admin Quetiapine Fumarate (SEROquel) 12.5 mg TID@0900,1300,1700 PO 12/23/18 09:00 12/23/18 18:44 Divalproex Sodium (Depakote Sprinkles) 500 mg HS PO 12/23/18 21:00 12/23/18 21:16 I have reviewed the current psychotropics carefully including drug interactions. Risk benefit ratio favors no change other than as noted in my dictated progress note. Diagnosis: Problems: (1) Anxiety disorder (2) Dementia, vascular, with depression (3) Impulse control disorder (4) Dementia, vascular, with delusions (5) Dementia in Alzheimer's disease with depression (6) Dementia in Alzheimer's disease with delusions RANDALL SCHWARZ MD Dec 23, 2018 21:43
--- NOTE | 2018-12-23 23:55 | PN ---
DATE: 12/22/2018 PSYCHIATRIC PROGRESS NOTE This late entry of 12/22/2018 covers the elements not covered in my initial note. SUBJECTIVE: I met with the patient evening of 12/22/2018. The patient slept 7-1/4 hours previous night. Previous night, he was delusional, talking about "these men are making whores out of all of you." This is per nursing report. He was looking for his chicken. 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 Staff had called me earlier as an emergency because of his agitation. We added Zyprexa 2.5 mg q. 2 hours p.r.n. psychosis, agitation, max 10 mg in 24 hours. REVIEW OF SYSTEMS: Ambulation impaired, in wheelchair. No CV, , pulmonary, eye, ENT system symptoms on review. Reliability poor. MENTAL STATUS EXAM: Oriented to himself. Insight, judgment, recent and remote memory, attention, concentration, fund of knowledge poor, consistent with his diagnosis. IMPRESSION: Major neurocognitive disorder, Alzheimer, vascular with delusion, depression, behavioral disturbance; anxiety disorder, unspecified; impulse control disorder, unspecified. Rest unchanged from initial note. PLAN: Start Seroquel 12.5 mg 9 a.m., 1:00 p.m., 5:00 p.m.; Zyprexa was added p.r.n. Maintain Depakote delayed release 500 mg at bedtime. Check CBC, CMP, valproic acid level on 12/24/2018. Maintain trazodone 25 mg at bedtime, Ativan 0.5 mg b.i.d. p.r.n. anxiety. We will make further adjustments as clinically indicated. RANDALL SCHWARZ MD DR: FELIPE/katya JOB#: [id number] / [id number]
[2018-12-24 06:10] VITALS: BP 107/67
[2018-12-24 07:23] LABS: BASO % 1 % (0-3); EOS # 0.2 x10^3/uL (0.0-0.7); EOS % 4 % (0-3); HEMATOCRIT 39.2 % (39.0-53.0); HEMOGLOBIN 12.6 g/dL (13.0-17.5); LYMPH # 1.1 x10^3/uL (1.0-4.8); LYMPH % 21 % (24-48); MEAN CORPUSCULAR HEMOGLOBIN 26 pg (25-35); MEAN CORPUSCULAR HGB CONC 32 g/dL (31-37); MEAN CORPUSCULAR VOLUME 81 fL (79-100); MONO # 0.4 x10^3/uL (0.0-1.1); MONO % 7 % (0-9); NEUT # 3.7 x10^3uL (1.8-7.7); NEUT % 68 % (31-73); PLATELET COUNT 131 x10^3/uL (140-400); RED BLOOD COUNT 4.86 x10^6/uL (4.30-5.70); RED CELL DISTRIBUTION WIDTH 22.2 % (11.5-14.5); WHITE BLOOD COUNT 5.4 x10^3/uL (4.0-11.0)
[2018-12-24 07:42] LABS: ALBUMIN/GLOBULIN RATIO 0.7 (1.0-1.7); ALK PHOS 96 U/L (46-116); ALT (SGPT) 25 U/L (16-63); ANION GAP 8 (6-14); AST (SGOT) 17 U/L (15-37); BLOOD UREA NITROGEN 32 mg/dL (8-26); BUN/CREATININE RATIO 29 (6-20); CARBON DIOXIDE 32 mmol/L (21-32); CHLORIDE 105 mmol/L (98-107); CREATININE 1.1 mg/dL (0.7-1.3); GFR 64.6; GLUCOSE 82 mg/dL (70-99); POTASSIUM 3.7 mmol/L (3.5-5.1); SODIUM 145 mmol/L (136-145); TOTAL BILIRUBIN 0.3 mg/dL (0.2-1.0); TOTAL PROTEIN 7.6 g/dL (6.4-8.2)
[2018-12-24 07:45] LABS: VAL ACID 21 mcg/mL (50-100)
[2018-12-24] MEDS: TAMSULOSIN 0.4 MG CAP.ER.24H. PO SCH (08:25)
[2018-12-24] MEDS: POTASSIUM CHLORIDE 10 MEQ TABLET.ER. PO SCH ×2 (08:25→20:41)
[2018-12-24] MEDS: SENNOSIDES 8.6 MG TABLET PO SCH (08:25)
[2018-12-24] MEDS: PENTOXIFYLLINE ER 400 MG TABLET.ER. PO SCH ×3 (08:26→16:19)
[2018-12-24] MEDS: QUEtiapine 25 MG TABLET. PO SCH ×3 (08:26→16:20)
[2018-12-24] MEDS: FUROSEMIDE 80 MG TABLET PO SCH ×2 (08:26→16:19)
[2018-12-24] MEDS: NYSTATIN TOPICAL POWDER 15GM BOTTLE. TP SCH ×2 (08:27→20:43)
[2018-12-24] MEDS: POLYETHYLENE GLYCOL 3350 17 GM PACKET. PO SCH (08:27)
[2018-12-24] MEDS: medroxyPROGESTERone 5 MG TABLET PO SCH (08:28)
[2018-12-24 15:59] VITALS: BP 103/64
[2018-12-24] MEDS: DIVALPROEX 125 MG CAP.SPRINK PO SCH ×2 (20:41→20:55)
[2018-12-24] MEDS: traZODone 50 MG TABLET. PO SCH (20:43)
--- NOTE | 2018-12-24 22:04 | PDOC ---
Exam Note: Preet Note: Please also refer to the separate dictated note~for this date of service dictated separately.~Patient seen individually. Discussed the patient with Nursing staff reviewed the chart.~Reviewed interim history and current functioning. Reviewed vital signs,~Labs/ Radiology~and current medications noted below. Continue current treatment with the changes noted in the dictated addendum note Assessment: Vital Signs/I&O: Vital Signs Date Time Temp Pulse Resp B/P (MAP) Pulse Ox O2 Delivery O2 Flow Rate FiO2 12/24/18 15:59 97.5 56 20 103/64 (77) 98 Room Air I & O 12/23/18 12/23/18 12/24/18 15:00 23:00 07:00 Intake Total 720 ml 240 ml 240 ml Balance 720 ml 240 ml 240 ml Labs: Laboratory Tests Test 12/24/18 06:54 White Blood Count 5.4 x10^3/uL (4.0-11.0) Red Blood Count 4.86 x10^6/uL (4.30-5.70) Hemoglobin 12.6 g/dL (13.0-17.5) L Hematocrit 39.2 % (39.0-53.0) Mean Corpuscular Volume 81 fL (79-100) Mean Corpuscular Hemoglobin 26 pg (25-35) Mean Corpuscular Hemoglobin Concent 32 g/dL (31-37) Red Cell Distribution Width 22.2 % (11.5-14.5) H Platelet Count 131 x10^3/uL (140-400) L Neutrophils (%) (Auto) 68 % (31-73) Lymphocytes (%) (Auto) 21 % (24-48) L Monocytes (%) (Auto) 7 % (0-9) Eosinophils (%) (Auto) 4 % (0-3) H Basophils (%) (Auto) 1 % (0-3) Neutrophils # (Auto) 3.7 x10^3uL (1.8-7.7) Lymphocytes # (Auto) 1.1 x10^3/uL (1.0-4.8) Monocytes # (Auto) 0.4 x10^3/uL (0.0-1.1) Eosinophils # (Auto) 0.2 x10^3/uL (0.0-0.7) Basophils # (Auto) 0.0 x10^3/uL (0.0-0.2) Sodium Level 145 mmol/L (136-145) Potassium Level 3.7 mmol/L (3.5-5.1) Chloride Level 105 mmol/L (98-107) Carbon Dioxide Level 32 mmol/L (21-32) Anion Gap 8 (6-14) Blood Urea Nitrogen 32 mg/dL (8-26) H Creatinine 1.1 mg/dL (0.7-1.3) Estimated GFR (Cockcroft-Gault) 64.6 BUN/Creatinine Ratio 29 (6-20) H Glucose Level 82 mg/dL (70-99) Calcium Level 9.0 mg/dL (8.5-10.1) Total Bilirubin 0.3 mg/dL (0.2-1.0) Aspartate Amino Transferase (AST) 17 U/L (15-37) Alanine Aminotransferase (ALT) 25 U/L (16-63) Alkaline Phosphatase 96 U/L (46-116) Total Protein 7.6 g/dL (6.4-8.2) Albumin 3.0 g/dL (3.4-5.0) L Albumin/Globulin Ratio 0.7 (1.0-1.7) L Valproic Acid Level 21 mcg/mL (50-100) L Valproic Acid Last Dose Date 12/23/18 Valproic Acid Last Dose Time 2100 Current Medications: Meds: Current Medications Medications (Trade) Dose Ordered Sig/Daren Route PRN Reason Start Time Stop Time Status Last Admin Dose Admin Medroxyprogesterone Acetate (Provera) 5 mg DAILY PO 12/24/18 09:00 12/24/18 08:28 Divalproex Sodium (Depakote Sprinkles) 500 mg BID PO 12/24/18 21:00 12/24/18 20:56 I have reviewed the current psychotropics carefully including drug interactions. Risk benefit ratio favors no change other than as noted in my dictated progress note. Diagnosis: Problems: (1) Anxiety disorder (2) Impulse control disorder (3) Dementia, vascular, with depression (4) Dementia, vascular, with delusions (5) Dementia in Alzheimer's disease with depression (6) Dementia in Alzheimer's disease with delusions RANDALL SCHWARZ MD Dec 24, 2018 22:04
--- NOTE | 2018-12-25 00:31 | PN ---
DATE: 12/23/2018 This late entry 12/23/2018, covers elements not covered in my initial note. SUBJECTIVE: I met with the patient evening of 12/23/2018. The patient slept 5-1/2 hours previous night. He remains confused, somewhat resistive to medications, but no sexual comments noted. Previous night, he had made a comment to a female nursing staff that she had a sexy body, but redirected. REVIEW OF SYSTEMS: Ambulation impaired, in wheelchair. No CV, , pulmonary, eye, ENT system symptoms on review. Reliability poor, not very verbally interactive as I met with him individually evening of 12/23/2018. MENTAL STATUS EXAM: Oriented to himself. Insight, judgment, recent and remote memory, attention, concentration, fund of knowledge poor, consistent with his diagnosis mentioned in my initial note. PLAN: No change from initial note. We have added Zyprexa p.r.n., Seroquel 12.5 mg t.i.d., Provera was added. Adjust further as clinically indicated. MAN Jhoana SCHWARZ MD DR: FELIPE/katya JOB#: [id number] / [id number]
[2018-12-25 05:38] VITALS: BP 104/62
[2018-12-25] MEDS: DIVALPROEX 125 MG CAP.SPRINK PO SCH ×2 (08:11→20:32)
[2018-12-25] MEDS: PENTOXIFYLLINE ER 400 MG TABLET.ER. PO SCH ×3 (08:11→16:25)
[2018-12-25] MEDS: FUROSEMIDE 80 MG TABLET PO SCH ×2 (08:11→16:24)
[2018-12-25] MEDS: medroxyPROGESTERone 5 MG TABLET PO SCH (08:13)
[2018-12-25] MEDS: TAMSULOSIN 0.4 MG CAP.ER.24H. PO SCH (08:13)
[2018-12-25] MEDS: SENNOSIDES 8.6 MG TABLET PO SCH (08:13)
[2018-12-25] MEDS: QUEtiapine 25 MG TABLET. PO SCH ×3 (08:13→16:25)
[2018-12-25] MEDS: POTASSIUM CHLORIDE 10 MEQ TABLET.ER. PO SCH ×2 (08:13→20:34)
[2018-12-25] MEDS: NYSTATIN TOPICAL POWDER 15GM BOTTLE. TP SCH ×2 (08:14→21:15)
[2018-12-25] MEDS: POLYETHYLENE GLYCOL 3350 17 GM PACKET. PO SCH (08:14)
[2018-12-25 15:57] VITALS: BP 93/61
[2018-12-25] MEDS: traZODone 50 MG TABLET. PO SCH (20:34)
--- NOTE | 2018-12-25 22:09 | PDOC ---
Exam Note: Preet Note: Please also refer to the separate dictated note~for this date of service dictated separately.~Patient seen individually. Discussed the patient with Nursing staff reviewed the chart.~Reviewed interim history and current functioning. Reviewed vital signs,~Labs/ Radiology~and current medications noted below. Continue current treatment with the changes noted in the dictated addendum note Assessment: Vital Signs/I&O: Vital Signs Date Time Temp Pulse Resp B/P (MAP) Pulse Ox O2 Delivery O2 Flow Rate FiO2 12/25/18 15:57 97.1 68 17 93/61 (72) 94 12/24/18 15:59 Room Air I & O 12/24/18 12/24/18 12/25/18 15:00 23:00 07:00 Intake Total 720 ml 360 ml Balance 720 ml 360 ml Current Medications: I have reviewed the current psychotropics carefully including drug interactions. Risk benefit ratio favors no change other than as noted in my dictated progress note. Diagnosis: Problems: (1) Anxiety disorder (2) Impulse control disorder (3) Dementia, vascular, with depression (4) Dementia, vascular, with delusions (5) Dementia in Alzheimer's disease with depression (6) Dementia in Alzheimer's disease with delusions RANDALL SCHWARZ MD Dec 25, 2018 22:09
--- NOTE | 2018-12-25 22:52 | PN ---
DATE: 12/24/2018 PSYCHIATRIC PROGRESS NOTE This late entry 12/24/2018 covers elements not covered in my initial note. SUBJECTIVE: I met with the patient evening of 12/24/2018 and discussed with LAWRENCE Lawton. The patient slept 6 hours previous night. He refused his medications at night, was calling staff names, hallucinating, picking on his hands. He was combative when put to bed. Depakote delayed release has been changed to Sprinkles because meds had to be given hidden in food. He has been hallucinating during the day 12/24/2018, grabbing out at things. Valproic acid level 21 on 12/24/2018. REVIEW OF SYSTEMS: No CV, , pulmonary, eye, ENT system symptoms on review. Reliability poor. Gait unsteady, in wheelchair. MENTAL STATUS EXAMINATION: Oriented to himself. Insight, judgment, recent and remote memory, attention, concentration, fund of knowledge poor, consistent with his diagnosis mentioned in my initial note. IMPRESSION: Major neurocognitive disorder, Alzheimer, vascular with delusion, depression, behavioral disturbance; anxiety disorder, unspecified; impulse control disorder, unspecified. PLAN: Increase Depakote from 500 mg at bedtime to 500 mg twice a day of the Sprinkles. Check CBC, CMP, valproic acid level in 3 days. Maintain Provera 5 mg a day, Ativan 0.5 mg b.i.d. p.r.n. anxiety, trazodone 25 mg at bedtime, Zyprexa p.r.n., Seroquel 12.5 mg t.i.d. Adjust further as clinically indicated. MAN Jhoana SCHWARZ MD DR: FELIPE/katya JOB#: [id number] / [id number]
[2018-12-26 05:46] VITALS: BP 96/50
[2018-12-26] MEDS: DIVALPROEX 125 MG CAP.SPRINK PO SCH ×2 (08:21→21:27)
[2018-12-26] MEDS: POLYETHYLENE GLYCOL 3350 17 GM PACKET. PO SCH (08:21)
[2018-12-26] MEDS: POTASSIUM CHLORIDE 10 MEQ TABLET.ER. PO SCH ×2 (08:22→21:27)
[2018-12-26] MEDS: PENTOXIFYLLINE ER 400 MG TABLET.ER. PO SCH ×3 (08:22→16:54)
[2018-12-26] MEDS: medroxyPROGESTERone 5 MG TABLET PO SCH (08:22)
[2018-12-26] MEDS: SENNOSIDES 8.6 MG TABLET PO SCH (08:22)
[2018-12-26] MEDS: QUEtiapine 25 MG TABLET. PO SCH ×3 (08:23→16:55)
[2018-12-26] MEDS: TAMSULOSIN 0.4 MG CAP.ER.24H. PO SCH (08:23)
[2018-12-26] MEDS: FUROSEMIDE 80 MG TABLET PO SCH ×2 (08:23→16:54)
[2018-12-26] MEDS: NYSTATIN TOPICAL POWDER 15GM BOTTLE. TP SCH ×2 (08:24→21:27)
[2018-12-26 16:57] VITALS: BP 102/64
[2018-12-26] MEDS: traZODone 50 MG TABLET. PO SCH (21:27)
--- NOTE | 2018-12-26 21:47 | PDOC ---
Exam Note: Preet Note: Please also refer to the separate dictated note~for this date of service dictated separately.~Patient seen individually. Discussed the patient with Nursing staff reviewed the chart.~Reviewed interim history and current functioning. Reviewed vital signs,~Labs/ Radiology~and current medications noted below. Continue current treatment with the changes noted in the dictated addendum note Assessment: Vital Signs/I&O: Vital Signs Date Time Temp Pulse Resp B/P (MAP) Pulse Ox O2 Delivery O2 Flow Rate FiO2 12/26/18 16:57 95.8 54 16 102/64 (77) 98 12/24/18 15:59 Room Air I & O 12/25/18 12/25/18 12/26/18 14:59 22:59 06:59 Intake Total 720 ml 240 ml 120 ml Balance 720 ml 240 ml 120 ml Current Medications: I have reviewed the current psychotropics carefully including drug interactions. Risk benefit ratio favors no change other than as noted in my dictated progress note. Diagnosis: Problems: (1) Anxiety disorder (2) Impulse control disorder (3) Dementia, vascular, with depression (4) Dementia, vascular, with delusions (5) Dementia in Alzheimer's disease with depression (6) Dementia in Alzheimer's disease with delusions RANDALL SCHWARZ MD Dec 26, 2018 21:47
[2018-12-27 06:09] VITALS: BP 109/60
[2018-12-27] MEDS: DIVALPROEX 125 MG CAP.SPRINK PO SCH ×2 (08:00→19:41)
[2018-12-27] MEDS: medroxyPROGESTERone 5 MG TABLET PO SCH (08:01)
[2018-12-27] MEDS: PENTOXIFYLLINE ER 400 MG TABLET.ER. PO SCH ×3 (08:01→17:22)
[2018-12-27] MEDS: POTASSIUM CHLORIDE 10 MEQ TABLET.ER. PO SCH ×2 (08:01→19:41)
[2018-12-27] MEDS: SENNOSIDES 8.6 MG TABLET PO SCH (08:01)
[2018-12-27] MEDS: FUROSEMIDE 80 MG TABLET PO SCH ×2 (08:02→17:21)
[2018-12-27] MEDS: QUEtiapine 25 MG TABLET. PO SCH ×3 (08:02→17:22)
[2018-12-27] MEDS: NYSTATIN TOPICAL POWDER 15GM BOTTLE. TP SCH ×2 (08:03→19:43)
[2018-12-27] MEDS: POLYETHYLENE GLYCOL 3350 17 GM PACKET. PO SCH (08:03)
[2018-12-27] MEDS: TAMSULOSIN 0.4 MG CAP.ER.24H. PO SCH (08:03)
[2018-12-27 17:17] VITALS: BP 111/72
[2018-12-27] MEDS: traZODone 50 MG TABLET. PO SCH (19:41)
--- NOTE | 2018-12-27 22:09 | PDOC ---
Exam Note: Preet Note: Please also refer to the separate dictated note~for this date of service dictated separately.~Patient seen individually. Discussed the patient with Nursing staff reviewed the chart.~Reviewed interim history and current functioning. Reviewed vital signs,~Labs/ Radiology~and current medications noted below. Continue current treatment with the changes noted in the dictated addendum note Assessment: Vital Signs/I&O: Vital Signs Date Time Temp Pulse Resp B/P (MAP) Pulse Ox O2 Delivery O2 Flow Rate FiO2 12/27/18 17:17 97.2 64 20 111/72 (85) 99 12/24/18 15:59 Room Air I & O 12/26/18 12/26/18 12/27/18 15:00 23:00 07:00 Intake Total 840 ml 240 ml 120 ml Balance 840 ml 240 ml 120 ml Current Medications: I have reviewed the current psychotropics carefully including drug interactions. Risk benefit ratio favors no change other than as noted in my dictated progress note. Diagnosis: Problems: (1) Anxiety disorder (2) Impulse control disorder (3) Dementia, vascular, with depression (4) Dementia, vascular, with delusions (5) Dementia in Alzheimer's disease with depression (6) Dementia in Alzheimer's disease with delusions RANDALL SCHWARZ MD Dec 27, 2018 22:09
[2018-12-28 05:07] VITALS: BP 111/67
[2018-12-28 07:20] LABS: ALBUMIN 3.1 g/dL (3.4-5.0); ALBUMIN/GLOBULIN RATIO 0.6 (1.0-1.7); ALK PHOS 102 U/L (46-116); ALT (SGPT) 17 U/L (16-63); ANION GAP 11 (6-14); AST (SGOT) 15 U/L (15-37); BLOOD UREA NITROGEN 37 mg/dL (8-26); BUN/CREATININE RATIO 31 (6-20); CALCIUM 9.3 mg/dL (8.5-10.1); CARBON DIOXIDE 30 mmol/L (21-32); CHLORIDE 107 mmol/L (98-107); CREATININE 1.2 mg/dL (0.7-1.3); GFR 58.4; GLUCOSE 61 mg/dL (70-99); POTASSIUM 4.1 mmol/L (3.5-5.1); SODIUM 148 mmol/L (136-145); TOTAL BILIRUBIN 0.2 mg/dL (0.2-1.0); TOTAL PROTEIN 8.1 g/dL (6.4-8.2)
[2018-12-28 07:36] LABS: VAL ACID 58 mcg/mL (50-100)
[2018-12-28 07:37] LABS: BASO % 0 % (0-3); EOS # 0.2 x10^3/uL (0.0-0.7); EOS % 3 % (0-3); HEMATOCRIT 40.3 % (39.0-53.0); HEMOGLOBIN 12.6 g/dL (13.0-17.5); LYMPH # 1.1 x10^3/uL (1.0-4.8); LYMPH % 20 % (24-48); MEAN CORPUSCULAR HEMOGLOBIN 26 pg (25-35); MEAN CORPUSCULAR HGB CONC 31 g/dL (31-37); MEAN CORPUSCULAR VOLUME 82 fL (79-100); MONO # 0.4 x10^3/uL (0.0-1.1); MONO % 7 % (0-9); NEUT # 3.9 x10^3uL (1.8-7.7); NEUT % 70 % (31-73); PLATELET COUNT 142 x10^3/uL (140-400); RED BLOOD COUNT 4.93 x10^6/uL (4.30-5.70); RED CELL DISTRIBUTION WIDTH 22.9 % (11.5-14.5); WHITE BLOOD COUNT 5.6 x10^3/uL (4.0-11.0)
[2018-12-28] MEDS: PENTOXIFYLLINE ER 400 MG TABLET.ER. PO SCH ×3 (08:16→17:00)
[2018-12-28] MEDS: POTASSIUM CHLORIDE 10 MEQ TABLET.ER. PO SCH ×2 (08:16→20:52)
[2018-12-28] MEDS: POLYETHYLENE GLYCOL 3350 17 GM PACKET. PO SCH (08:16)
[2018-12-28] MEDS: DIVALPROEX 125 MG CAP.SPRINK PO SCH ×2 (08:19→20:52)
[2018-12-28] MEDS: NYSTATIN TOPICAL POWDER 15GM BOTTLE. TP SCH ×2 (08:20→20:53)
[2018-12-28] MEDS: medroxyPROGESTERone 5 MG TABLET PO SCH (08:20)
[2018-12-28] MEDS: SENNOSIDES 8.6 MG TABLET PO SCH (08:20)
[2018-12-28] MEDS: QUEtiapine 25 MG TABLET. PO SCH ×3 (08:20→17:00)
[2018-12-28] MEDS: TAMSULOSIN 0.4 MG CAP.ER.24H. PO SCH (08:20)
[2018-12-28] MEDS: FUROSEMIDE 80 MG TABLET PO SCH ×2 (08:20→16:00)
--- NOTE | 2018-12-28 10:40 | PN ---
DATE: 12/25/2018 PSYCHIATRIC PROGRESS NOTE This late entry 12/25/2018 covers elements not covered in my initial note. SUBJECTIVE: I met with the patient evening of 12/25/2018. The patient was also staffed a treatment team meeting with the entire team. He slept 6 hours. Appetite 75-100%, compliant with cares and assessments and medications. Labs for his Depakote will be checked on the 12/28/2018. He has been in the day room all day. REVIEW OF SYSTEMS: Ambulation impaired, in wheelchair. No CV, , pulmonary, eye, ENT system symptoms on review. Reliability poor. MENTAL STATUS EXAM: Oriented to himself. Insight, judgment, recent and remote memory, attention, concentration, fund of knowledge poor, consistent with his diagnosis mentioned in my initial note. PLAN: No change from initial note. MAN Jhoana SCHWARZ MD DR: FELIPE/katya JOB#: [id number] / [id number]
[2018-12-28 16:05] VITALS: BP 105/65
[2018-12-28] MEDS: traZODone 50 MG TABLET. PO SCH (20:53)
--- NOTE | 2018-12-28 22:31 | PN ---
DATE: 12/26/2018 PSYCHIATRIC PROGRESS NOTE This late entry 12/26/2018 covers elements not covered in my initial note. SUBJECTIVE: I met with the patient evening of 12/26/2018. The patient slept 7-1/4 hours previous night. He has been somewhat withdrawn, at one point grabbed the bottom of a nursing tech at 6:00 a.m. in the morning, per Nursing report, but not sexually aggressive after that. He remains disorganized. REVIEW OF SYSTEMS: Ambulation impaired, in wheelchair. No CV, , pulmonary, eye, ENT system symptoms on review. MENTAL STATUS EXAM: Oriented to himself. Insight, judgment, recent and remote memory, attention, concentration, fund of knowledge poor, consistent with his diagnosis mentioned in my initial note. PLAN: Continue current psychotropics. I received a message to call the patient's DPOA, but then number seems incorrect, and we will have the nursing staff double check and I will then return the call. RANDALL SCHWARZ MD DR: FELIPE/katya JOB#: [id number] / [id number]
--- NOTE | 2018-12-28 23:09 | PDOC ---
Exam Note: Preet Note: Please also refer to the separate dictated note~for this date of service dictated separately.~Patient seen individually. Discussed the patient with Nursing staff reviewed the chart.~Reviewed interim history and current functioning. Reviewed vital signs,~Labs/ Radiology~and current medications noted below. Continue current treatment with the changes noted in the dictated addendum note Assessment: Vital Signs/I&O: Vital Signs Date Time Temp Pulse Resp B/P (MAP) Pulse Ox O2 Delivery O2 Flow Rate FiO2 12/28/18 16:05 97.2 83 20 105/65 (78) 97 12/28/18 05:07 Room Air I & O 12/27/18 12/27/18 12/28/18 15:00 23:00 07:00 Intake Total 360 ml 240 ml 120 ml Balance 360 ml 240 ml 120 ml Labs: Laboratory Tests Test 12/28/18 06:37 White Blood Count 5.6 x10^3/uL (4.0-11.0) Red Blood Count 4.93 x10^6/uL (4.30-5.70) Hemoglobin 12.6 g/dL (13.0-17.5) L Hematocrit 40.3 % (39.0-53.0) Mean Corpuscular Volume 82 fL (79-100) Mean Corpuscular Hemoglobin 26 pg (25-35) Mean Corpuscular Hemoglobin Concent 31 g/dL (31-37) Red Cell Distribution Width 22.9 % (11.5-14.5) H Platelet Count 142 x10^3/uL (140-400) Neutrophils (%) (Auto) 70 % (31-73) Lymphocytes (%) (Auto) 20 % (24-48) L Monocytes (%) (Auto) 7 % (0-9) Eosinophils (%) (Auto) 3 % (0-3) Basophils (%) (Auto) 0 % (0-3) Neutrophils # (Auto) 3.9 x10^3uL (1.8-7.7) Lymphocytes # (Auto) 1.1 x10^3/uL (1.0-4.8) Monocytes # (Auto) 0.4 x10^3/uL (0.0-1.1) Eosinophils # (Auto) 0.2 x10^3/uL (0.0-0.7) Basophils # (Auto) 0.0 x10^3/uL (0.0-0.2) Sodium Level 148 mmol/L (136-145) H Potassium Level 4.1 mmol/L (3.5-5.1) Chloride Level 107 mmol/L (98-107) Carbon Dioxide Level 30 mmol/L (21-32) Anion Gap 11 (6-14) Blood Urea Nitrogen 37 mg/dL (8-26) H Creatinine 1.2 mg/dL (0.7-1.3) Estimated GFR (Cockcroft-Gault) 58.4 BUN/Creatinine Ratio 31 (6-20) H Glucose Level 61 mg/dL (70-99) L Calcium Level 9.3 mg/dL (8.5-10.1) Total Bilirubin 0.2 mg/dL (0.2-1.0) Aspartate Amino Transferase (AST) 15 U/L (15-37) Alanine Aminotransferase (ALT) 17 U/L (16-63) Alkaline Phosphatase 102 U/L (46-116) Total Protein 8.1 g/dL (6.4-8.2) Albumin 3.1 g/dL (3.4-5.0) L Albumin/Globulin Ratio 0.6 (1.0-1.7) L Valproic Acid Level 58 mcg/mL (50-100) Valproic Acid Last Dose Date 12/27/18 Valproic Acid Last Dose Time 2100 Current Medications: I have reviewed the current psychotropics carefully including drug interactions. Risk benefit ratio favors no change other than as noted in my dictated progress note. Diagnosis: Problems: (1) Medical clearance for psychiatric admission (2) Anxiety disorder (3) Impulse control disorder (4) Dementia, vascular, with depression (5) Dementia, vascular, with delusions (6) Dementia in Alzheimer's disease with depression (7) Dementia in Alzheimer's disease with delusions RANDALL SCHWARZ MD Dec 28, 2018 23:09
--- NOTE | 2018-12-29 02:17 | PN ---
DATE: 12/27/2018 PSYCHIATRIC PROGRESS NOTE This late entry 12/27/2018 covers elements not covered in my initial note. SUBJECTIVE: I met with the patient evening of 12/27/2018. Per Jered RN, patient slept 7-1/4 hours previous night. He has been somewhat withdrawn. No sexually inappropriate behaviors, but did grab the bottom of the aide early in the morning at 6:00 a.m. He has been disorganized. In fact, on further review, patient did not sleep at all previous night. REVIEW OF SYSTEMS: Ambulation impaired, in wheelchair. No CV, , pulmonary, eye, ENT system symptoms on review. Reliability poor. MENTAL STATUS EXAM: Oriented to himself. Insight, judgment, recent and remote memory, attention, concentration, fund of knowledge poor, consistent with his diagnosis. As I was meeting with him, he was asking for his Bible and felt it was "just here." Quite disorganized. LABORATORY DATA: Reviewed. IMPRESSION: Unchanged from initial note. PLAN: No change from initial note. We will monitor his sleep pattern. If this is still problematic may consider adding Remeron to help with this along with his mood, anxiety. RANDALL SCHWARZ MD DR: FELIPE/katya JOB#: [id number] / [id number]
[2018-12-29 06:34] VITALS: BP 112/73
[2018-12-29] MEDS: TAMSULOSIN 0.4 MG CAP.ER.24H. PO SCH (08:13)
[2018-12-29] MEDS: POLYETHYLENE GLYCOL 3350 17 GM PACKET. PO SCH (08:13)
[2018-12-29] MEDS: FUROSEMIDE 80 MG TABLET PO SCH ×2 (08:14→16:00)
[2018-12-29] MEDS: medroxyPROGESTERone 5 MG TABLET PO SCH (08:14)
[2018-12-29] MEDS: DIVALPROEX 125 MG CAP.SPRINK PO SCH ×2 (08:15→20:24)
[2018-12-29] MEDS: POTASSIUM CHLORIDE 10 MEQ TABLET.ER. PO SCH ×2 (08:16→20:24)
[2018-12-29] MEDS: PENTOXIFYLLINE ER 400 MG TABLET.ER. PO SCH ×3 (08:16→17:00)
[2018-12-29] MEDS: NYSTATIN TOPICAL POWDER 15GM BOTTLE. TP SCH ×2 (08:16→20:24)
[2018-12-29] MEDS: SENNOSIDES 8.6 MG TABLET PO SCH (08:16)
[2018-12-29] MEDS: QUEtiapine 25 MG TABLET. PO SCH ×3 (08:16→17:00)
[2018-12-29 16:00] VITALS: BP 97/65
[2018-12-29] MEDS: traZODone 50 MG TABLET. PO SCH (20:23)
[2018-12-29 20:25] VITALS: BP 127/76
--- NOTE | 2018-12-29 21:43 | PDOC ---
Exam Note: Preet Note: Please also refer to the separate dictated note~for this date of service dictated separately.~Patient seen individually. Discussed the patient with Nursing staff reviewed the chart.~Reviewed interim history and current functioning. Reviewed vital signs,~Labs/ Radiology~and current medications noted below. Continue current treatment with the changes noted in the dictated addendum note Assessment: Vital Signs/I&O: Vital Signs Date Time Temp Pulse Resp B/P (MAP) Pulse Ox O2 Delivery O2 Flow Rate FiO2 12/29/18 20:25 54 127/76 (93) 12/29/18 16:00 97.2 16 100 12/28/18 05:07 Room Air I & O 12/28/18 12/28/18 12/29/18 15:00 23:00 07:00 Intake Total 1080 ml 360 ml Balance 1080 ml 360 ml Current Medications: I have reviewed the current psychotropics carefully including drug interactions. Risk benefit ratio favors no change other than as noted in my dictated progress note. 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
[2018-12-30 06:15] VITALS: BP 133/80
[2018-12-30] MEDS: POTASSIUM CHLORIDE 10 MEQ TABLET.ER. PO SCH ×2 (08:17→19:44)
[2018-12-30] MEDS: DIVALPROEX 125 MG CAP.SPRINK PO SCH ×2 (08:17→19:44)
[2018-12-30] MEDS: SENNOSIDES 8.6 MG TABLET PO SCH (08:17)
[2018-12-30] MEDS: TAMSULOSIN 0.4 MG CAP.ER.24H. PO SCH (08:18)
[2018-12-30] MEDS: NYSTATIN TOPICAL POWDER 15GM BOTTLE. TP SCH ×2 (08:18→19:44)
[2018-12-30] MEDS: PENTOXIFYLLINE ER 400 MG TABLET.ER. PO SCH ×3 (08:18→17:01)
[2018-12-30] MEDS: QUEtiapine 25 MG TABLET. PO SCH ×3 (08:18→17:01)
[2018-12-30] MEDS: POLYETHYLENE GLYCOL 3350 17 GM PACKET. PO SCH (08:18)
[2018-12-30] MEDS: medroxyPROGESTERone 5 MG TABLET PO SCH (08:18)
[2018-12-30] MEDS: FUROSEMIDE 80 MG TABLET PO SCH ×2 (08:18→17:01)
[2018-12-30 16:17] VITALS: BP 105/70
[2018-12-30] MEDS: traZODone 50 MG TABLET. PO SCH (19:43)
--- NOTE | 2018-12-30 21:46 | PDOC ---
Exam Note: Preet Note: Please also refer to the separate dictated note~for this date of service dictated separately.~Patient seen individually. Discussed the patient with Nursing staff reviewed the chart.~Reviewed interim history and current functioning. Reviewed vital signs,~Labs/ Radiology~and current medications noted below. Continue current treatment with the changes noted in the dictated addendum note Assessment: Vital Signs/I&O: Vital Signs Date Time Temp Pulse Resp B/P (MAP) Pulse Ox O2 Delivery O2 Flow Rate FiO2 12/30/18 16:17 97.5 64 18 105/70 (82) 95 12/28/18 05:07 Room Air I & O 12/29/18 12/29/18 12/30/18 15:00 23:00 07:00 Intake Total 360 ml 240 ml 240 ml Output Total 1000 ml Balance 360 ml -760 ml 240 ml Current Medications: I have reviewed the current psychotropics carefully including drug interactions. Risk benefit ratio favors no change other than as noted in my dictated progress note. Diagnosis: Problems: (1) Anxiety disorder (2) Impulse control disorder (3) Dementia, vascular, with depression (4) Dementia, vascular, with delusions (5) Dementia in Alzheimer's disease with depression (6) Dementia in Alzheimer's disease with delusions RANDALL SCHWARZ MD Dec 30, 2018 21:46
--- NOTE | 2018-12-31 03:42 | PN ---
DATE: 12/28/2018 PSYCHIATRIC PROGRESS NOTE This late entry 12/28/2018 covers elements not covered in my initial note. SUBJECTIVE: I met with the patient in the evening. The patient slept 6-1/2 hours previous night. He remains confused. Previous evening, he was seeing spiders, hallucinating, grabbing at things around him looking for fish. 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 REVIEW OF SYSTEMS: Ambulation impaired, in wheelchair. No CV, , pulmonary, eye, ENT system symptoms on review. Reliability poor. MENTAL STATUS EXAM: Oriented to himself. Insight, judgment, recent and remote memory, attention, concentration, fund of knowledge poor, consistent with his diagnosis mentioned in my initial note. PLAN: No change from initial note. MAN Jhoana SCHWARZ MD DR: FELIPE/katya JOB#: [id number] / [id number]
--- NOTE | 2018-12-31 04:26 | PN ---
DATE: 12/29/2018 PSYCHIATRIC PROGRESS NOTE This late entry 12/29 covers elements not covered in my initial note. SUBJECTIVE: I met with the patient in the evening. The patient slept 6-1/2 hours previous night. He remains confused, grabbing at things, compliant with medications, drowsy. No sexually inappropriate behaviors noted. REVIEW OF SYSTEMS: Ambulation impaired, in wheelchair. No CV, , pulmonary, eye, ENT system symptoms on review. Reliability poor. MENTAL STATUS EXAMINATION: Oriented to himself. Insight, judgment, recent and remote memory, attention, concentration, fund of knowledge poor, consistent with his diagnosis mentioned in my initial note. PLAN: No change from initial note. MAN Jhoana SCHWARZ MD DR: FELIPE/katya JOB#: [id number] / [id number]
[2018-12-31 06:15] VITALS: BP 109/66
[2018-12-31] MEDS: FUROSEMIDE 80 MG TABLET PO SCH ×2 (08:08→16:55)
[2018-12-31] MEDS: DIVALPROEX 125 MG CAP.SPRINK PO SCH ×2 (08:08→19:45)
[2018-12-31] MEDS: medroxyPROGESTERone 5 MG TABLET PO SCH (08:08)
[2018-12-31] MEDS: PENTOXIFYLLINE ER 400 MG TABLET.ER. PO SCH ×3 (08:08→16:55)
[2018-12-31] MEDS: TAMSULOSIN 0.4 MG CAP.ER.24H. PO SCH (08:09)
[2018-12-31] MEDS: POTASSIUM CHLORIDE 10 MEQ TABLET.ER. PO SCH ×2 (08:09→19:44)
[2018-12-31] MEDS: SENNOSIDES 8.6 MG TABLET PO SCH (08:09)
[2018-12-31] MEDS: NYSTATIN TOPICAL POWDER 15GM BOTTLE. TP SCH ×2 (08:10→19:45)
[2018-12-31] MEDS: POLYETHYLENE GLYCOL 3350 17 GM PACKET. PO SCH (08:10)
[2018-12-31 17:02] VITALS: BP 98/68
[2018-12-31] MEDS: traZODone 50 MG TABLET. PO SCH (19:45)
[2018-12-31 20:07] VITALS: BP 123/76
--- NOTE | 2018-12-31 22:10 | PDOC ---
Exam Note: Preet Note: Please also refer to the separate dictated note~for this date of service dictated separately.~Patient seen individually. Discussed the patient with Nursing staff reviewed the chart.~Reviewed interim history and current functioning. Reviewed vital signs,~Labs/ Radiology~and current medications noted below. Continue current treatment with the changes noted in the dictated addendum note Assessment: Vital Signs/I&O: Vital Signs Date Time Temp Pulse Resp B/P (MAP) Pulse Ox O2 Delivery O2 Flow Rate FiO2 12/31/18 20:07 58 123/76 (92) 12/31/18 17:02 96.2 16 98 12/31/18 06:15 Room Air I & O 12/30/18 12/30/18 12/31/18 15:00 23:00 07:00 Intake Total 600 ml 480 ml 120 ml Balance 600 ml 480 ml 120 ml Current Medications: I have reviewed the current psychotropics carefully including drug interactions. Risk benefit ratio favors no change other than as noted in my dictated progress note. Diagnosis: Problems: (1) Anxiety disorder (2) Impulse control disorder (3) Dementia, vascular, with depression (4) Dementia, vascular, with delusions (5) Dementia in Alzheimer's disease with depression (6) Dementia in Alzheimer's disease with delusions RANDALL SCHWARZ MD Dec 31, 2018 22:10
--- NOTE | 2018-12-31 23:25 | PN ---
DATE: 12/30/2018 PSYCHIATRIC PROGRESS NOTE This late entry 12/30/2018 covers elements not covered in my initial note. SUBJECTIVE: I met with the patient evening of 12/30/2018. Per nursing report, the patient remains withdrawn in his wheelchair, has intermittent visual hallucinations, irritable at times, otherwise compliant. REVIEW OF SYSTEMS: Ambulation impaired, in wheelchair. No CV, , pulmonary, eye, ENT system symptoms on review. Reliability poor. MENTAL STATUS EXAM: Oriented to himself. Insight, judgment, recent and remote memory, attention, concentration, fund of knowledge poor, consistent with his diagnosis. IMPRESSION: Major neurocognitive disorder, Alzheimer, vascular with delusion, depression, behavioral disturbance; anxiety disorder, unspecified; impulse control disorder, unspecified. PLAN: I had a message to call the patient's daughter, Alina and I returned her call. We had a lengthy discussion. Daughter said the patient had been on Seroquel in the past and had some cardiac side effects from it. We will go ahead and stop the Seroquel. Daughter also felt the patient was somewhat over sedated on the Seroquel wondered about the dosage, but he is only on 12.5 mg t.i.d. Nevertheless given the adverse reaction cardiac hernández in the past, we will stop at least for now. Also discussed him being on Depakote as a mood stabilizer and valproic acid level is therapeutic at 58 on 12/28/2018. Answered the daughter's questions. Continue rest of his psychotropics and reassess as clinically indicated. MAN Jhoana SCHWARZ MD DR: FELIPE/katya JOB#: [id number] / [id number]
[2019-01-01 06:27] VITALS: BP 112/65
[2019-01-01] MEDS: medroxyPROGESTERone 5 MG TABLET PO SCH (08:09)
[2019-01-01] MEDS: PENTOXIFYLLINE ER 400 MG TABLET.ER. PO SCH ×3 (08:09→17:15)
[2019-01-01] MEDS: SENNOSIDES 8.6 MG TABLET PO SCH (08:09)
[2019-01-01] MEDS: TAMSULOSIN 0.4 MG CAP.ER.24H. PO SCH (08:09)
[2019-01-01] MEDS: POTASSIUM CHLORIDE 10 MEQ TABLET.ER. PO SCH ×2 (08:09→20:28)
[2019-01-01] MEDS: DIVALPROEX 125 MG CAP.SPRINK PO SCH ×2 (08:10→20:28)
[2019-01-01] MEDS: FUROSEMIDE 80 MG TABLET PO SCH ×2 (08:10→17:15)
[2019-01-01] MEDS: POLYETHYLENE GLYCOL 3350 17 GM PACKET. PO SCH (08:10)
[2019-01-01] MEDS: NYSTATIN TOPICAL POWDER 15GM BOTTLE. TP SCH ×2 (08:11→20:30)
[2019-01-01] MEDS ORDERED: FLU VAX QS 2019-20 (36MOS+)/PF 0.5 ML SYRINGE. VAX IM ONE (10:00)
[2019-01-01 17:20] VITALS: BP 95/57
[2019-01-01] MEDS: traZODone 50 MG TABLET. PO SCH (20:28)
--- NOTE | 2019-01-01 21:55 | PDOC ---
Exam Note: Preet Note: Please also refer to the separate dictated note~for this date of service dictated separately.~Patient seen individually. Discussed the patient with Nursing staff reviewed the chart.~Reviewed interim history and current functioning. Reviewed vital signs,~Labs/ Radiology~and current medications noted below. Continue current treatment with the changes noted in the dictated addendum note Assessment: Vital Signs/I&O: Vital Signs Date Time Temp Pulse Resp B/P (MAP) Pulse Ox O2 Delivery O2 Flow Rate FiO2 01/01/19 17:20 97.0 55 16 95/57 (70) 96 01/01/19 06:27 Room Air I & O 12/31/18 12/31/18 01/01/19 15:00 23:00 07:00 Intake Total 840 ml 240 ml 120 ml Balance 840 ml 240 ml 120 ml Current Medications: Meds: Current Medications Medications (Trade) Dose Ordered Sig/Daren Route PRN Reason Start Time Stop Time Status Last Admin Dose Admin Influenza Virus Vaccine Quadrival (Afluria Quad 2018- (3yr Up) Syringe) 0.5 ml ONCE ONCE VAX IM 01/01/19 10:00 01/01/19 10:01 DC 01/01/19 17:19 I have reviewed the current psychotropics carefully including drug interactions. Risk benefit ratio favors no change other than as noted in my dictated progress note. Diagnosis: Problems: (1) Anxiety disorder (2) Impulse control disorder (3) Dementia, vascular, with depression (4) Dementia, vascular, with delusions (5) Dementia in Alzheimer's disease with depression (6) Dementia in Alzheimer's disease with delusions RANDALL SCHWARZ MD Jan 01, 2019 21:55
--- NOTE | 2019-01-02 01:14 | PN ---
DATE: 12/31/2018 PSYCHIATRIC PROGRESS NOTE This late entry, 12/31, covers elements not covered in my initial note. SUBJECTIVE: I met with the patient evening of 12/31. The patient slept 6-1/4 hours previous night. 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 REVIEW OF SYSTEMS: He has been more awake during the day. Ambulation impaired, in wheelchair. No CV, , pulmonary, eye, ENT system symptoms on review, as I met with him. MENTAL STATUS EXAM: Oriented to himself. Insight, judgment, recent and remote memory, attention, concentration, fund of knowledge poor, consistent with his diagnosis mentioned in my initial note. PLAN: No change from initial note. MAN Jhoana SCHWARZ MD DR: FELIPE/katya JOB#: [id number] / [id number]
[2019-01-02 06:39] VITALS: BP 112/76
[2019-01-02] MEDS: POTASSIUM CHLORIDE 10 MEQ TABLET.ER. PO SCH ×2 (08:21→20:23)
[2019-01-02] MEDS: POLYETHYLENE GLYCOL 3350 17 GM PACKET. PO SCH (08:21)
[2019-01-02] MEDS: medroxyPROGESTERone 5 MG TABLET PO SCH (08:22)
[2019-01-02] MEDS: SENNOSIDES 8.6 MG TABLET PO SCH (08:22)
[2019-01-02] MEDS: DIVALPROEX 125 MG CAP.SPRINK PO SCH ×2 (08:23→20:23)
[2019-01-02] MEDS: FUROSEMIDE 80 MG TABLET PO SCH ×2 (08:23→17:13)
[2019-01-02] MEDS: PENTOXIFYLLINE ER 400 MG TABLET.ER. PO SCH ×3 (08:23→17:07)
[2019-01-02] MEDS: TAMSULOSIN 0.4 MG CAP.ER.24H. PO SCH (08:23)
[2019-01-02] MEDS: NYSTATIN TOPICAL POWDER 15GM BOTTLE. TP SCH ×2 (08:26→20:33)
[2019-01-02 15:51] VITALS: BP 111/67
[2019-01-02] MEDS: traZODone 50 MG TABLET. PO SCH (20:23)
[2019-01-02] MEDS: risperiDONE 0.25 MG TABLET. PO SCH (20:29)
--- NOTE | 2019-01-02 21:58 | PDOC ---
Exam Note: Preet Note: Please also refer to the separate dictated note~for this date of service dictated separately.~Patient seen individually. Discussed the patient with Nursing staff reviewed the chart.~Reviewed interim history and current functioning. Reviewed vital signs,~Labs/ Radiology~and current medications noted below. Continue current treatment with the changes noted in the dictated addendum note Assessment: Vital Signs/I&O: Vital Signs Date Time Temp Pulse Resp B/P (MAP) Pulse Ox O2 Delivery O2 Flow Rate FiO2 01/02/19 15:51 97.0 63 16 111/67 (82) 95 01/01/19 06:27 Room Air I & O 01/01/19 01/01/19 01/02/19 15:00 23:00 07:00 Intake Total 840 ml 480 ml 240 ml Balance 840 ml 480 ml 240 ml Current Medications: Meds: Current Medications Medications (Trade) Dose Ordered Sig/Daren Route PRN Reason Start Time Stop Time Status Last Admin Dose Admin Risperidone (RisperDAL) 0.125 mg HS PO 01/02/19 21:00 01/02/19 20:29 I have reviewed the current psychotropics carefully including drug interactions. Risk benefit ratio favors no change other than as noted in my dictated progress note. Diagnosis: Problems: (1) Anxiety disorder (2) Impulse control disorder (3) Dementia, vascular, with depression (4) Dementia, vascular, with delusions (5) Dementia in Alzheimer's disease with depression (6) Dementia in Alzheimer's disease with delusions RANDALL SCHWARZ MD Jan 02, 2019 21:58
[2019-01-03 05:17] VITALS: BP 99/72
[2019-01-03 05:55] VITALS: BP 99/69
[2019-01-03 07:12] LABS: BASO % 0 % (0-3); EOS # 0.1 x10^3/uL (0.0-0.7); EOS % 2 % (0-3); HEMATOCRIT 42.5 % (39.0-53.0); HEMOGLOBIN 13.4 g/dL (13.0-17.5); LYMPH # 1.2 x10^3/uL (1.0-4.8); LYMPH % 24 % (24-48); MEAN CORPUSCULAR HEMOGLOBIN 26 pg (25-35); MEAN CORPUSCULAR HGB CONC 32 g/dL (31-37); MEAN CORPUSCULAR VOLUME 81 fL (79-100); MONO # 0.3 x10^3/uL (0.0-1.1); MONO % 7 % (0-9); NEUT # 3.5 x10^3uL (1.8-7.7); NEUT % 68 % (31-73); PLATELET COUNT 103 x10^3/uL (140-400); RED BLOOD COUNT 5.22 x10^6/uL (4.30-5.70); RED CELL DISTRIBUTION WIDTH 22.3 % (11.5-14.5); WHITE BLOOD COUNT 5.2 x10^3/uL (4.0-11.0)
[2019-01-03 07:30] LABS: ALBUMIN/GLOBULIN RATIO 0.7 (1.0-1.7); CALCIUM 9.2 mg/dL (8.5-10.1); CREATININE 1.4 mg/dL (0.7-1.3); GFR 48.9; POTASSIUM 3.8 mmol/L (3.5-5.1); TOTAL BILIRUBIN 0.3 mg/dL (0.2-1.0); TOTAL PROTEIN 7.6 g/dL (6.4-8.2)
[2019-01-03] MEDS: PENTOXIFYLLINE ER 400 MG TABLET.ER. PO SCH ×3 (08:00→17:06)
[2019-01-03] MEDS: DIVALPROEX 125 MG CAP.SPRINK PO SCH ×2 (08:00→20:33)
[2019-01-03] MEDS: medroxyPROGESTERone 5 MG TABLET PO SCH (08:01)
[2019-01-03] MEDS: TAMSULOSIN 0.4 MG CAP.ER.24H. PO SCH (08:01)
[2019-01-03] MEDS: SENNOSIDES 8.6 MG TABLET PO SCH (08:01)
[2019-01-03] MEDS: POTASSIUM CHLORIDE 10 MEQ TABLET.ER. PO SCH ×2 (08:04→20:34)
[2019-01-03] MEDS: FUROSEMIDE 80 MG TABLET PO SCH ×2 (08:05→17:06)
[2019-01-03] MEDS: NYSTATIN TOPICAL POWDER 15GM BOTTLE. TP SCH ×2 (09:00→20:37)
[2019-01-03] MEDS: POLYETHYLENE GLYCOL 3350 17 GM PACKET. PO SCH (09:00)
[2019-01-03 16:32] VITALS: BP 91/57
[2019-01-03] MEDS: risperiDONE 0.25 MG TABLET. PO SCH (20:34)
[2019-01-03] MEDS: traZODone 50 MG TABLET. PO SCH (20:35)
[2019-01-03] MEDS: MIRTAZAPINE 7.5 MG TABLET. PO SCH (20:37)
--- NOTE | 2019-01-03 21:49 | PDOC ---
Exam Note: Preet Note: Please also refer to the separate dictated note~for this date of service dictated separately.~Patient seen individually. Discussed the patient with Nursing staff reviewed the chart.~Reviewed interim history and current functioning. Reviewed vital signs,~Labs/ Radiology~and current medications noted below. Continue current treatment with the changes noted in the dictated addendum note Assessment: Vital Signs/I&O: Vital Signs Date Time Temp Pulse Resp B/P (MAP) Pulse Ox O2 Delivery O2 Flow Rate FiO2 01/03/19 16:32 97.2 58 16 91/57 (68) 96 01/03/19 05:55 Room Air I & O 01/02/19 01/02/19 01/03/19 15:00 23:00 07:00 Intake Total 960 ml 480 ml 120 ml Balance 960 ml 480 ml 120 ml Labs: Laboratory Tests Test 01/03/19 06:45 White Blood Count 5.2 x10^3/uL (4.0-11.0) Red Blood Count 5.22 x10^6/uL (4.30-5.70) Hemoglobin 13.4 g/dL (13.0-17.5) Hematocrit 42.5 % (39.0-53.0) Mean Corpuscular Volume 81 fL (79-100) Mean Corpuscular Hemoglobin 26 pg (25-35) Mean Corpuscular Hemoglobin Concent 32 g/dL (31-37) Red Cell Distribution Width 22.3 % (11.5-14.5) H Platelet Count 103 x10^3/uL (140-400) L Neutrophils (%) (Auto) 68 % (31-73) Lymphocytes (%) (Auto) 24 % (24-48) Monocytes (%) (Auto) 7 % (0-9) Eosinophils (%) (Auto) 2 % (0-3) Basophils (%) (Auto) 0 % (0-3) Neutrophils # (Auto) 3.5 x10^3uL (1.8-7.7) Lymphocytes # (Auto) 1.2 x10^3/uL (1.0-4.8) Monocytes # (Auto) 0.3 x10^3/uL (0.0-1.1) Eosinophils # (Auto) 0.1 x10^3/uL (0.0-0.7) Basophils # (Auto) 0.0 x10^3/uL (0.0-0.2) Sodium Level 149 mmol/L (136-145) H Potassium Level 3.8 mmol/L (3.5-5.1) Chloride Level 110 mmol/L (98-107) H Carbon Dioxide Level 31 mmol/L (21-32) Anion Gap 8 (6-14) Blood Urea Nitrogen 38 mg/dL (8-26) H Creatinine 1.4 mg/dL (0.7-1.3) H Estimated GFR (Cockcroft-Gault) 48.9 BUN/Creatinine Ratio 27 (6-20) H Glucose Level 66 mg/dL (70-99) L Calcium Level 9.2 mg/dL (8.5-10.1) Total Bilirubin 0.3 mg/dL (0.2-1.0) Aspartate Amino Transferase (AST) 20 U/L (15-37) Alanine Aminotransferase (ALT) 24 U/L (16-63) Alkaline Phosphatase 93 U/L (46-116) Total Protein 7.6 g/dL (6.4-8.2) Albumin 3.0 g/dL (3.4-5.0) L Albumin/Globulin Ratio 0.7 (1.0-1.7) L Current Medications: Meds: Current Medications Medications (Trade) Dose Ordered Sig/Daren Route PRN Reason Start Time Stop Time Status Last Admin Dose Admin Mirtazapine (Remeron) 7.5 mg QHS PO 01/03/19 21:00 01/03/19 20:37 I have reviewed the current psychotropics carefully including drug interactions. Risk benefit ratio favors no change other than as noted in my dictated progress note. Diagnosis: Problems: (1) Anxiety disorder (2) Impulse control disorder (3) Dementia, vascular, with depression (4) Dementia, vascular, with delusions (5) Dementia in Alzheimer's disease with depression (6) Dementia in Alzheimer's disease with delusions RANDALL SCHWARZ MD Jan 03, 2019 21:49
--- NOTE | 2019-01-03 22:18 | PN ---
DATE: 01/01/2019 PSYCHIATRIC PROGRESS NOTE This late entry 01/01/2019 covers the elements not covered in my initial note. SUBJECTIVE: I met with the patient in the evening of 01/01/2019. According to nursing staff, the patient slept 6-1/2 hours previous night. No behaviors noted at night. He did well in the morning with some intermittent hallucinations, but not very much. He ate his lunch little more awake, alert since we stopped the Seroquel. He laid in bed after lunch. REVIEW OF SYSTEMS: Ambulation impaired, in wheelchair. No CV, , pulmonary, eye, ENT system symptoms on review. Reliability is poor. MENTAL STATUS EXAM: Oriented to himself. Insight, judgment, recent and remote memory, attention, concentration, fund of knowledge poor, consistent with his diagnosis mentioned in my initial note. PLAN: No change from initial note. MAN Jhoana SCHWARZ MD DR: FELIPE/katya JOB#: [id number] / [id number]
--- NOTE | 2019-01-04 03:38 | PN ---
DATE: 01/02/2019 This late entry January 02 covers the elements not covered in my initial note. SUBJECTIVE: I met with the patient evening of January 02. Staffed a treatment team meeting with the entire team in the morning. The patient slept 5-3/4 hours. Reviewed his history. He has been somewhat withdrawn, confused, compliant with meds and cares, more awake during the day, having intermittent visual hallucinations, talking about "Allie is ." It is unclear what he is referring to. REVIEW OF SYSTEMS: Ambulation impaired, in wheelchair. No CV, , pulmonary, eye, ENT system symptoms on review. Reliability poor. MENTAL STATUS EXAM: Oriented to himself. Insight, judgment, recent and remote memory, attention, concentration, fund of knowledge poor, consistent with his diagnosis mentioned in my initial note. PLAN: No change from initial note. Start Risperdal 0.125 mg at bedtime. Maintain Depakote Sprinkles 500 b.i.d., trazodone 25 mg at bedtime, Provera 5 mg daily and no sexually inappropriate behaviors noted, Zyprexa p.r.n. MAN Jhoana SCHWARZ MD DR: FELIPE/katya JOB#: [id number] / [id number]
[2019-01-04 05:26] VITALS: BP 105/71
[2019-01-04] MEDS: SENNOSIDES 8.6 MG TABLET PO SCH (08:19)
[2019-01-04] MEDS: DIVALPROEX 125 MG CAP.SPRINK PO SCH ×2 (08:19→21:47)
[2019-01-04] MEDS: FUROSEMIDE 80 MG TABLET PO SCH ×3 (08:20→17:37)
[2019-01-04] MEDS: PENTOXIFYLLINE ER 400 MG TABLET.ER. PO SCH ×3 (08:22→17:37)
[2019-01-04] MEDS: POTASSIUM CHLORIDE 10 MEQ TABLET.ER. PO SCH ×2 (08:22→21:47)
[2019-01-04] MEDS: TAMSULOSIN 0.4 MG CAP.ER.24H. PO SCH (08:22)
[2019-01-04] MEDS: POLYETHYLENE GLYCOL 3350 17 GM PACKET. PO SCH (08:22)
[2019-01-04] MEDS: medroxyPROGESTERone 5 MG TABLET PO SCH (08:22)
[2019-01-04 14:50] LABS: BACTERIA,URINE FEW /HPF (0-FEW); BILIRUBIN,URINE NEG (NEG); CLARITY,URINE HAZY; COLOR,URINE YELLOW; GLUCOSE,URINE NEG (NEG); NITRITE,URINE NEG (NEG); UROBILINOGEN,URINE 0.2 mg/dL (0.2 mg/dL); WBC,URINE TNTC /HPF (0-4)
[2019-01-04 15:40] VITALS: BP 112/74
[2019-01-04] MEDS: NYSTATIN TOPICAL POWDER 15GM BOTTLE. TP SCH ×2 (17:36→21:48)
[2019-01-04 19:27] LABS: BASO % 1 % (0-3); EOS # 0.1 x10^3/uL (0.0-0.7); EOS % 2 % (0-3); HEMATOCRIT 40.5 % (39.0-53.0); HEMOGLOBIN 12.8 g/dL (13.0-17.5); LYMPH # 1.3 x10^3/uL (1.0-4.8); LYMPH % 25 % (24-48); MEAN CORPUSCULAR HEMOGLOBIN 26 pg (25-35); MEAN CORPUSCULAR HGB CONC 32 g/dL (31-37); MEAN CORPUSCULAR VOLUME 82 fL (79-100); MONO # 0.4 x10^3/uL (0.0-1.1); MONO % 8 % (0-9); NEUT # 3.2 x10^3uL (1.8-7.7); NEUT % 64 % (31-73); PLATELET COUNT 90 x10^3/uL (140-400); RED BLOOD COUNT 4.96 x10^6/uL (4.30-5.70); RED CELL DISTRIBUTION WIDTH 22.4 % (11.5-14.5); WHITE BLOOD COUNT 5.1 x10^3/uL (4.0-11.0)
[2019-01-04 19:30] LABS: BGAS PH 7.44 (7.35-7.46)
[2019-01-04 19:33] LABS: ALBUMIN 2.6 g/dL (3.4-5.0); ALBUMIN/GLOBULIN RATIO 0.6 (1.0-1.7); CALCIUM 9.2 mg/dL (8.5-10.1); CREATININE 1.5 mg/dL (0.7-1.3); GFR 45.1; TOTAL BILIRUBIN 0.2 mg/dL (0.2-1.0); TOTAL PROTEIN 6.9 g/dL (6.4-8.2)
[2019-01-04] MEDS ORDERED: IV DEXTROSE 5% - 0.9 % NACL 1,000 ML IV SCH (20:30)
[2019-01-04] MEDS: MIRTAZAPINE 7.5 MG TABLET. PO SCH (21:47)
[2019-01-04] MEDS: traZODone 50 MG TABLET. PO SCH (21:47)
[2019-01-04] MEDS: risperiDONE 0.25 MG TABLET. PO SCH (21:48)
--- NOTE | 2019-01-04 22:21 | PDOC ---
Exam Note: Preet Note: Please also refer to the separate dictated note~for this date of service dictated separately.~Patient seen individually. Discussed the patient with Nursing staff reviewed the chart.~Reviewed interim history and current functioning. Reviewed vital signs,~Labs/ Radiology~and current medications noted below. Continue current treatment with the changes noted in the dictated addendum note Assessment: Vital Signs/I&O: Vital Signs Date Time Temp Pulse Resp B/P (MAP) Pulse Ox O2 Delivery O2 Flow Rate FiO2 01/04/19 15:40 97.2 74 112/74 (87) 98.0 01/04/19 05:26 21 99 01/03/19 05:55 Room Air I & O 01/03/19 01/03/19 01/04/19 15:00 23:00 07:00 Intake Total 480 ml 240 ml 240 ml Balance 480 ml 240 ml 240 ml Labs: Laboratory Tests Test 01/04/19 14:13 01/04/19 19:10 Urine Collection Type U cath Urine Color Yellow Urine Clarity Hazy Urine pH 6.5 Urine Specific [place] 1.015 Urine Protein Neg (NEG-TRACE) Urine Glucose (UA) Neg mg/dL (NEG) Urine Ketones (Stick) Neg mg/dL (NEG) Urine Blood Trace (NEG) Urine Nitrite Neg (NEG) Urine Bilirubin Neg (NEG) Urine Urobilinogen Dipstick 0.2 mg/dL (0.2 mg/dL) Urine Leukocyte Esterase Mod (NEG) Urine RBC 3-5 /HPF (0-2) Urine WBC Tntc /HPF (0-4) Urine Squamous Epithelial Cells None /LPF Urine Bacteria Few /HPF (0-FEW) White Blood Count 5.1 x10^3/uL (4.0-11.0) Red Blood Count 4.96 x10^6/uL (4.30-5.70) Hemoglobin 12.8 g/dL (13.0-17.5) L Hematocrit 40.5 % (39.0-53.0) Mean Corpuscular Volume 82 fL (79-100) Mean Corpuscular Hemoglobin 26 pg (25-35) Mean Corpuscular Hemoglobin Concent 32 g/dL (31-37) Red Cell Distribution Width 22.4 % (11.5-14.5) H Platelet Count 90 x10^3/uL (140-400) L Neutrophils (%) (Auto) 64 % (31-73) Lymphocytes (%) (Auto) 25 % (24-48) Monocytes (%) (Auto) 8 % (0-9) Eosinophils (%) (Auto) 2 % (0-3) Basophils (%) (Auto) 1 % (0-3) Neutrophils # (Auto) 3.2 x10^3uL (1.8-7.7) Lymphocytes # (Auto) 1.3 x10^3/uL (1.0-4.8) Monocytes # (Auto) 0.4 x10^3/uL (0.0-1.1) Eosinophils # (Auto) 0.1 x10^3/uL (0.0-0.7) Basophils # (Auto) 0.0 x10^3/uL (0.0-0.2) Platelet Estimate Pending Blood pH 7.44 (7.35-7.46) Blood Gas PCO2 42 mmHg (35-46) Blood Gas PO2 89 mmHg (71-100) Blood Gas HCO3 29 mmol/L (21-28) H Arterial Bld O2 Saturation (Calc) 97 % (92-99) FiO2 21 % Sodium Level 151 mmol/L (136-145) H Potassium Level 4.0 mmol/L (3.5-5.1) Chloride Level 113 mmol/L (98-107) H Carbon Dioxide Level 30 mmol/L (21-32) Anion Gap 8 (6-14) Blood Urea Nitrogen 47 mg/dL (8-26) H Creatinine 1.5 mg/dL (0.7-1.3) H Estimated GFR (Cockcroft-Gault) 45.1 BUN/Creatinine Ratio 31 (6-20) H Glucose Level 124 mg/dL (70-99) H Lactic Acid Level 1.4 mmol/L (0.4-2.0) Calcium Level 9.2 mg/dL (8.5-10.1) Total Bilirubin 0.2 mg/dL (0.2-1.0) Aspartate Amino Transferase (AST) 18 U/L (15-37) Alanine Aminotransferase (ALT) 23 U/L (16-63) Alkaline Phosphatase 87 U/L (46-116) Total Protein 6.9 g/dL (6.4-8.2) Albumin 2.6 g/dL (3.4-5.0) L Albumin/Globulin Ratio 0.6 (1.0-1.7) L Current Medications: I have reviewed the current psychotropics carefully including drug interactions. Risk benefit ratio favors no change other than as noted in my dictated progress note. Diagnosis: Problems: (1) Anxiety disorder (2) Impulse control disorder (3) Dementia, vascular, with depression (4) Dementia, vascular, with delusions (5) Dementia in Alzheimer's disease with depression (6) Dementia in Alzheimer's disease with delusions RANDALL SCHWARZ MD Jan 04, 2019 22:21
[2019-01-04 23:09] LABS: ANISOCYTOSIS SLIGHT; PLT ESTIMATE DECREASED (ADEQUATE); SCHISTOCYTES OCC
[2019-01-05 06:19] VITALS: BP 107/73
[2019-01-05 07:07] LABS: CALCIUM 9.3 mg/dL (8.5-10.1); CREATININE 1.5 mg/dL (0.7-1.3); GFR 45.1; POTASSIUM 4.3 mmol/L (3.5-5.1)
[2019-01-05] MEDS: PENTOXIFYLLINE ER 400 MG TABLET.ER. PO SCH (08:00)
[2019-01-05] MEDS: TAMSULOSIN 0.4 MG CAP.ER.24H. PO SCH (09:00)
[2019-01-05] MEDS: FUROSEMIDE 80 MG TABLET PO SCH (09:00)
[2019-01-05] MEDS: medroxyPROGESTERone 5 MG TABLET PO SCH (09:00)
[2019-01-05] MEDS: POTASSIUM CHLORIDE 10 MEQ TABLET.ER. PO SCH (09:00)
[2019-01-05] MEDS: SENNOSIDES 8.6 MG TABLET PO SCH (09:00)
[2019-01-05] MEDS: POLYETHYLENE GLYCOL 3350 17 GM PACKET. PO SCH (09:00)
[2019-01-05] MEDS: DIVALPROEX 125 MG CAP.SPRINK PO SCH (09:00)
[2019-01-05] MEDS ORDERED: ALBU2.5V14 NEB (11:47)
[2019-01-05] MEDS ORDERED: ACET325T9 PO (11:47)
[2019-01-05] MEDS ORDERED: DIVA125C2 PO (11:48)
[2019-01-05] MEDS ORDERED: NACL IV (11:51)
[2019-01-05] MEDS ORDERED: DEXTROSE 5% IV (11:51)
[2019-01-05] MEDS ORDERED: MAG355OR12 PO (11:52)
[2019-01-05] MEDS ORDERED: MAGN2400 PO (11:52)
[2019-01-05] MEDS ORDERED: MIRT15TA3 PO (11:54)
[2019-01-05] MEDS ORDERED: METH57CR17 TP (11:54)
[2019-01-05] MEDS ORDERED: NYST15PO9 TP (11:55)
[2019-01-05] MEDS ORDERED: OLAN5TAB5 PO (11:56)
[2019-01-05] MEDS ORDERED: RISP0.2519 PO (11:56)
[2019-01-05] MEDS ORDERED: MEDR5TAB PO (11:57)
--- NOTE | 2019-01-05 21:25 | PDOC ---
Exam Note: Preet Note: Please also refer to the separate dictated note~for this date of service dictated separately.~Patient seen individually. Discussed the patient with Nursing staff reviewed the chart.~Reviewed interim history and current functioning. Reviewed vital signs,~Labs/ Radiology~and current medications noted below. Continue current treatment with the changes noted in the dictated addendum note Assessment: Vital Signs/I&O: Vital Signs Date Time Temp Pulse Resp B/P (MAP) Pulse Ox O2 Delivery O2 Flow Rate FiO2 01/05/19 06:19 96.1 110 16 107/73 (84) 94 01/04/19 15:40 98.0 01/03/19 05:55 Room Air I & O 01/04/19 01/04/19 01/05/19 15:00 23:00 07:00 Intake Total 720 ml 0 ml Balance 720 ml 0 ml Labs: Laboratory Tests Test 01/05/19 06:47 Sodium Level 151 mmol/L (136-145) H Potassium Level 4.3 mmol/L (3.5-5.1) Chloride Level 114 mmol/L (98-107) H Carbon Dioxide Level 28 mmol/L (21-32) Anion Gap 9 (6-14) Blood Urea Nitrogen 45 mg/dL (8-26) H Creatinine 1.5 mg/dL (0.7-1.3) H Estimated GFR (Cockcroft-Gault) 45.1 Glucose Level 81 mg/dL (70-99) Calcium Level 9.3 mg/dL (8.5-10.1) Current Medications: I have reviewed the current psychotropics carefully including drug interactions. Risk benefit ratio favors no change other than as noted in my dictated progress note. Diagnosis: Problems: (1) Anxiety disorder (2) Impulse control disorder (3) Dementia, vascular, with depression (4) Dementia, vascular, with delusions (5) Dementia in Alzheimer's disease with depression (6) Dementia in Alzheimer's disease with delusions RANDALL SCHWARZ MD Jan 05, 2019 21:24
--- NOTE | 2019-01-06 00:34 | PN ---
DATE: 01/03/2019 This late entry 01/03/2019, covers elements not covered in my initial note. SUBJECTIVE: I met with the patient evening of 01/03/2019. The patient slept just 3/4 hours previous night per LAWRENCE Chester. Temperature 96.6, will defer to Dr. Ritter. Labs are being checked. There was a piece of gauze found in his bottom. Nursing staff will follow up closely. He has been talking to things that are not there per nursing report. He is a little irritable with nursing staff and he wished him good morning, he responded "you need to watch it." Later, he did not know how to eat. We are repeating a UA, rule out UTI and that could be worsening his confusion. Starting Remeron 7.5 mg at bedtime. REVIEW OF SYSTEMS: Ambulation impaired, in wheelchair. No CV, , pulmonary, eye, ENT system symptoms on review. Reliability poor. MENTAL STATUS EXAM: Oriented to himself. Insight, judgment, recent and remote memory, attention, concentration, fund of knowledge poor, consistent with his diagnosis mentioned in my initial note. PLAN: No change from initial note. MAN Jhoana SCHWARZ MD DR: FELIPE/katya JOB#: [id number] / [id number]
--- NOTE | 2019-01-06 20:41 | DS ---
DATE OF DISCHARGE: 01/05/2019 This is late entry 01/05/2019. REASON FOR ADMISSION: Please refer to the admission history for details. Briefly, the patient is a 78-year-old male, referred to us from [facility], referred by his primary care physician on account of increasingly aggressive behaviors within the context of his dementia. He was attempting to elope sexually inappropriate, combative with peers, agitated with staff, cursing, hitting, kicking. He had failed outpatient psychiatric interventions resulting in this referral. SIGNIFICANT FINDINGS AND CLINICAL COURSE: Following admission, the patient was seen daily individually by myself from a psychiatric standpoint, medical followup with Dr. Ritter. The patient was withdrawn, intermittently agitated. He was started on Seroquel and adjusted, but he was quite sedated on this and when I talked to his DPOA daughter, she indicated he did not respond to Seroquel well in the past and we stopped it. Depakote was adjusted to 500 mg b.i.d. to reach therapeutic level of 58, Remeron started 7.5 mg at bedtime for insomnia and he was on Provera 5 mg a day, Ativan p.r.n. At about this stage, he developed a UTI and possible urosepsis and was transferred to medical-surgical floor/ICU per Dr. Ritter. REVIEW OF SYSTEMS: Prior to discharge, no CV, , pulmonary, eye, ENT system symptoms on review. He is unable to transfer on his own, remained in a wheelchair/Broda chair. MENTAL STATUS EXAMINATION: Oriented to himself. Insight, judgment, recent and remote memory, attention, concentration, fund of knowledge poor, consistent with his diagnoses. FINAL DIAGNOSES: Major neurocognitive disorder, Alzheimer, vascular with delusion, depression, behavioral disturbance; anxiety disorder, unspecified; impulse control disorder, unspecified; urinary tract infection, urosepsis. Rest unchanged from admission. DISCHARGE MEDICATIONS: Please refer to the MRAD. DISCHARGE INSTRUCTIONS: Psychiatric and medical followup in the ICU. MAN Jhoana SCHWARZ MD DR: FELIPE/katya JOB#: [id number] / [id number]
--- NOTE | 2019-01-07 01:04 | PN ---
DATE: 01/04/2019 PSYCHIATRIC PROGRESS NOTE This late entry, 01/04, covers elements not covered in my initial note. SUBJECTIVE: I met with the patient in the evening. The patient slept 6-1/2 hours previous night. The patient has had a difficult day medically. BUN and potassium are elevated as is the fact that he is lethargic and hypotensive. We will defer to Dr. Ritter. He has been somnolent and drowsy all day. Lethargic, had to be fed breakfast and lunch. Use of lift needed before noon to transfer him to bed as he was weak, unable to bear weight. Straight cath UA was sent to [facility]. He is trying to be combative in bed with care and placement of adult brief, but very weak. Four staff members were needed to turn and reposition him in bed. He has been sleeping since then. He has had periods of agonal breathing, responded when the lights turned on in the room. Respirations 12, irregular, heart rate regular. Noon and evening meds held due to lethargy. Dr. Ritter is following the patient medically. I did return a call from the patient's daughter, PRISCILLA, discussed with her the UTI and we will defer medical management on Dr. Ritter's discretion. REVIEW OF SYSTEMS: No CV, , pulmonary, eye, ENT system symptoms on review. Reliability poor. MENTAL STATUS EXAM: Oriented to himself. Insight, judgment, recent and remote memory, attention, concentration, fund of knowledge poor, consistent with his diagnosis. IMPRESSION: Major neurocognitive disorder, Alzheimer, vascular with delusion, depression, behavioral disturbance; anxiety disorder, unspecified; urinary tract infection; sedation; lethargy. PLAN: No change from a psychiatric standpoint. We will defer to Dr. Ritter whether the patient needs to be transferred to the ICU at some stage, but he is being started on fluids per Dr. Rtiter. RANDALL SCHWARZ MD DR: FELIPE/katya JOB#: [id number] / [id number]
== END 2019-01-05 12:03 | disposition home or self-care (01) | DRG 57 ==
LOC: ER 11:36 → GEROPSY 13:48
PROVIDERS: ADMIT Psychiatry & Neurology Psychiatry; ATTEND Psychiatry & Neurology Psychiatry
DX: G30.9 Alzheimer's disease, unspecified (principal); N39.0 Urinary tract infection, site not specified; I13.0 Hypertensive heart and chronic kidney disease with heart failure and stage 1 through stage 4 chronic kidney disease, or unspecified chronic kidney disease; F01.51 Vascular dementia, unspecified severity, with behavioral disturbance; N18.9 Chronic kidney disease, unspecified; F41.9 Anxiety disorder, unspecified; F32.9 Major depressive disorder, single episode, unspecified; F02.80 Dementia in other diseases classified elsewhere, unspecified severity, without behavioral disturbance, psychotic disturbance, mood disturbance, and anxiety; F63.9 Impulse disorder, unspecified; E87.6 Hypokalemia; E66.01 Morbid (severe) obesity due to excess calories; D50.9 Iron deficiency anemia, unspecified; I73.9 Peripheral vascular disease, unspecified; I50.9 Heart failure, unspecified; I87.2 Venous insufficiency (chronic) (peripheral); Z66 Do not resuscitate; G47.33 Obstructive sleep apnea (adult) (pediatric); Z87.891 Personal history of nicotine dependence; Z79.899 Other long term (current) drug therapy; Z99.3 Dependence on wheelchair; G40.909 Epilepsy, unspecified, not intractable, without status epilepticus
CPT/HCPCS: 36415; 36600; 71045; 80048; 80053; 80061; 80164; 81001; 82306; 82803; 83036; 83540; 83550; 83605; 83735; 84436; 84443; 84480; 85025; 86592; 87086; 90471; 90686; 93005; 93923; 96372; J0696; J7042; 99285-25

== ENCOUNTER 2019-01-05 11:52 | Inpatient (IN) | payer MEDICARE, MEDICAID ==
[~2019-01-05] VITALS: Ht 177.8 cm; Wt 128.9 kg
[2019-01-05] VITALS (10 sets, daily range): BP systolic 82–134; BP diastolic 47–73
[~2019-01-05 11:52] MED LIST: ACET325T9 PO; ALBU2.5V14 NEB; ALBU2.5V8 INH; DEXTROSE 5% IV; DIVA125C2 PO; DIVA250T14 PO; FURO80TA72 PO; IBUP400T18 PO; LORA-254 PO; MAG355OR12 PO; MAGN2400 PO; MECL25TA3 PO; NACL IV; PENT400T7 PO; POLY17PO5 PO; POTA10TA10 PO; SENN8.6T99 PO; TAMS0.4C97 PO; TRAZ-120 PO
[2019-01-05] MEDS ORDERED: MIRT15TA3 PO (11:54)
[2019-01-05] MEDS ORDERED: METH57CR17 TP (11:54)
[2019-01-05] MEDS ORDERED: NYST15PO9 TP (11:55)
[2019-01-05] MEDS ORDERED: OLAN5TAB5 PO (11:56)
[2019-01-05] MEDS ORDERED: RISP0.2519 PO (11:56)
[2019-01-05] MEDS ORDERED: MEDR5TAB PO (11:57)
[2019-01-05] MEDS ORDERED: NON FORMULARY ITEM (Albuterol Sulfate (Albuterol Sulfate Conc Neb Soln) 2.5 MG) NEB PRN (12:30)
[2019-01-05] MEDS ORDERED: ACETAMINOPHEN 325 MG TABLET PO PRN (12:30)
[2019-01-05] MEDS ORDERED: IV NORMAL SALINE 500ML 500 ML IV ONE (12:30)
[2019-01-05 12:34] LABS: HEMATOCRIT 39.8 % (39.0-53.0); HEMOGLOBIN 12.7 g/dL (13.0-17.5); RED BLOOD COUNT 4.88 x10^6/uL (4.30-5.70); RED CELL DISTRIBUTION WIDTH 22.5 % (11.5-14.5); WHITE BLOOD COUNT 5.7 x10^3/uL (4.0-11.0)
[2019-01-05 12:42] LABS: BGAS PH 7.44 (7.35-7.46)
[2019-01-05] MEDS ORDERED: METHYL SALICYLATE/MENTHOL TOPICAL OINTMENT 57GM TUBE. TP PRN (12:45)
[2019-01-05 12:50] LABS: ALBUMIN 2.6 g/dL (3.4-5.0); ALBUMIN/GLOBULIN RATIO 0.6 (1.0-1.7); CALCIUM 9.1 mg/dL (8.5-10.1); CREATININE 1.4 mg/dL (0.7-1.3); GFR 48.9; POTASSIUM 4.5 mmol/L (3.5-5.1); TOTAL BILIRUBIN 0.2 mg/dL (0.2-1.0); TOTAL PROTEIN 6.9 g/dL (6.4-8.2)
[2019-01-05] MEDS ORDERED: ALBUTEROL SULFATE 2.5 MG/3 ML NEBU. NEB PRN (13:00)
[2019-01-05 13:01] LABS: BACTERIA,URINE FEW /HPF (0-FEW); BILIRUBIN,URINE NEG (NEG); CLARITY,URINE CLOUDY; COLOR,URINE YELLOW; GLUCOSE,URINE NEG (NEG); NITRITE,URINE NEG (NEG); RBC,URINE RARE /HPF (0-2); UROBILINOGEN,URINE 1 mg/dL (0.2 mg/dL); WBC,URINE >40 /HPF (0-4)
--- NOTE | 2019-01-05 13:04 | HP ---
ADMIT DATE: 01/05/2019 HISTORY OF PRESENT ILLNESS: The patient is 78-year-old male patient who was transferred from [facility] on account of altered mental status, hypertension, metabolic encephalopathy. He was unresponsive this morning. He was noted also to be encephalopathic yesterday and his chemistry showed that his serum sodium was high at 151. He has also acute on chronic kidney injury and we did lab work yesterday including blood gases which showed a pH of 7.44, pCO2 of 42, pO2 of 89, bicarbonate was 29, oxygen saturation was 97% on FiO2 of 21%. His chemistry showed that his serum sodium is up to 151, potassium 4, chloride 113, bicarbonate 30, anion gap of 8, BUN 47, creatinine 1.5. His valproic acid was only 58 mcg/mL. We did chest x-ray also yesterday which showed no consolidation or pleural effusion, normal heart size, linear bibasilar atelectasis or scarring. However, the patient continued to be encephalopathic, unresponsive and in fact he became hypotensive. His lab work again showed that his sodium was extremely high at 151 and serum sodium 151, acute on chronic kidney injury with creatinine of 1.5 and therefore the patient was transferred to ICU where he was found to be again encephalopathic; however, he has probably bilateral lower extremity cellulitis and possible urinary tract infection as he is retaining urine, so we placed an indwelling Galan catheter. We sent urine and blood for culture and sensitivity. I did start him on Keppra as he is known to have seizure disorder and start him also on Zyvox and Zosyn for broad-spectrum antibiotic. PHYSICAL EXAMINATION: GENERAL: When he arrived to the ICU, his blood pressure 132/74, oxygen saturation was 97% on room air. Temperature 97.1, respiratory rate of 18. HEAD, EYES, EARS, NOSE AND THROAT: Showed normocephalic, atraumatic. NECK: Supple. HEART: Showed normal first and second heart sounds. No gallop or murmur. CHEST: Clear to auscultation. No crepitation or rhonchi. ABDOMEN: Distended, soft, nontender. No guarding or rigidity. No organomegaly. All hernial orifice intact. Bowel sounds normal. NEUROLOGIC: He continued to be encephalopathic, does open his eyes to painful stimuli but drifts back to sleep. All his cranial nerves seem to be grossly intact. LABORATORY DATA: His blood gases done this morning showed a pH of 7.430, pCO2 of 45, pO2 of 82, bicarbonate was 30 and oxygen saturation was 96% on FiO2 of 21%. His lab work still pending at the time of this dictation. His white cell count was 5700, hemoglobin 12.7, hematocrit 39.8, MCV was 82 and platelet count of 90,000. His chemistry and lactic acid as well as chest x-ray are still pending at the time of this dictation. ASSESSMENT AND PLAN: Hypertension, likely due to septic shock versus excessive diuresis as he has been on 100 mg of Lasix twice a day. As his blood pressure is stable, we have placed a Galan catheter in and started him on D5W at 125 mL. He has an order for 500 mL normal saline bolus if his blood pressure drops below 100 systolic. After obtaining blood and urine culture and a chest x-ray, we will start him on Zyvox 600 mg IV twice a day and Zosyn 2.25 grams IV every 8 hours. ASSESSMENT: Altered mental status, likely due to metabolic encephalopathy with markedly elevated hypernatremia. He has acute on chronic kidney injury, benign prostatic hypertrophy with bladder outlet obstruction requiring indwelling Galan catheter. He has morbid obesity, obstructive sleep apnea. Other medical problems include congestive heart failure, severe peripheral vascular disease, and seizure disorder. KENJI OLSEN MD DR: DO/katya JOB#: [id number] / [id number]
--- NOTE | 2019-01-05 13:06 | RAD ---
EXAM: Chest, single view. HISTORY: Hypertension. Sepsis. Pneumonia. COMPARISON: 12/21/2018 FINDINGS: A frontal view of the chest is obtained. There is stable mild interstitial prominence without jasbir congestion. There is no consolidation, pleural effusion or pneumothorax. There is a stable prominent cardiac silhouette, a component of which is due to portable technique. IMPRESSION: No acute pulmonary finding. Electronically signed by: Judie Mendiola MD (01/05/2019 1:03 PM) [facility]
[2019-01-05] MEDS: PIPERACILLIN/TAZOBACTAM 2.25 GM in IV NORMAL SALINE 50ML 50 ML IV SCH ×2 (14:04→22:51)
[2019-01-05] MEDS: IV DEXTROSE 5% 1,000 ML IV SCH (16:54)
[2019-01-05] MEDS: NYSTATIN TOPICAL POWDER 15GM BOTTLE. TP SCH (21:00)
[2019-01-05] MEDS: LACTOBACILLUS RHAMNOSUS GG 1 CAPSULE. PO SCH (21:00)
[2019-01-06] VITALS (23 sets, daily range): BP systolic 80–131; BP diastolic 47–71
[2019-01-06] MEDS: IV DEXTROSE 5% 1,000 ML IV SCH ×4 (02:34→21:27)
[2019-01-06] MEDS: PIPERACILLIN/TAZOBACTAM 2.25 GM in IV NORMAL SALINE 50ML 50 ML IV SCH ×3 (06:03→22:01)
[2019-01-06 06:24] LABS: HEMATOCRIT 35.7 % (39.0-53.0); HEMOGLOBIN 11.3 g/dL (13.0-17.5); RED BLOOD COUNT 4.38 x10^6/uL (4.30-5.70); RED CELL DISTRIBUTION WIDTH 22.3 % (11.5-14.5); WHITE BLOOD COUNT 4.3 x10^3/uL (4.0-11.0)
[2019-01-06 06:46] LABS: ALBUMIN 2.3 g/dL (3.4-5.0); ALBUMIN/GLOBULIN RATIO 0.6 (1.0-1.7); CALCIUM 8.6 mg/dL (8.5-10.1); CREATININE 1.2 mg/dL (0.7-1.3); GFR 58.4; POTASSIUM 3.5 mmol/L (3.5-5.1); TOTAL BILIRUBIN 0.4 mg/dL (0.2-1.0); TOTAL PROTEIN 6.2 g/dL (6.4-8.2)
[2019-01-06] MEDS: NYSTATIN TOPICAL POWDER 15GM BOTTLE. TP SCH ×2 (09:00→20:14)
[2019-01-06] MEDS: LACTOBACILLUS RHAMNOSUS GG 1 CAPSULE. PO SCH ×2 (09:00→20:14)
--- NOTE | 2019-01-06 12:38 | EKG ---
[address] [address] Test Date: 2019-01-06 Test Time: 11:21:26 Pat Name: PAKO LEONARD Department: Room: ICU03 1 Gender: M Chart Clerk: : 1940 Requested By: RAE MYERS Order Number: [id number] Reading MD: Measurements Intervals [place] Rate: 47 P: AL: QRS: 25 QRSD: 112 T: 239 QT: 588 QTc: 520 Interpretive Statements IRREGULAR RHYTHM, NO P-WAVE FOUND VENTRICULAR PREMATURE COMPLEX(ES) LOW LIMB LEAD VOLTAGE QRS(T) CONTOUR ABNORMALITY CONSIDER INFERIOR MYOCARDIAL DAMAGE ST & T ABNORMALITY, CONSIDER ANTERIOR ISCHEMIA OR LEFT VENTRICULAR STRAIN T ABNORMALITY IN LATERAL LEADS ABNORMAL ECG RI6.02 No previous ECG available for comparison
[2019-01-06 14:30] LABS: CREATININE 1.2 mg/dL (0.7-1.3); GFR 58.4; MAGNESIUM 2.3 mg/dL (1.8-2.4); POTASSIUM 3.5 mmol/L (3.5-5.1)
--- NOTE | 2019-01-06 17:09 | PDOC2 ---
CONSULT Date of Admission DATE: 01/06/19 TIME: 17:09 Reason for Consult: Bradycardia Referring Physician: Dr. Ritter Chief Complaint Mental status changes Source: Chart review History of Present Illness 78-year-old male who was transferred from [facility] with mental status changes, metabolic encephalopathy, hyponatremia and possible UTI. He was found to have bradycardia with pauses on telemetry prompting cardiology consultation. Patient is unable to give any significant history due to mental status changes. Past Medical History Atrial fibrillation Chronic diastolic heart failure Hypertension Peripheral artery disease Seizure disorder Obstructive sleep apnea Past Surgical History Inguinal hernia repair Family History not contributory Social History Patient apparently quit smoking and drinking approximately 20-25 years ago. There is no history of drug use. Current Medications Current Medications Acetaminophen (Tylenol) 650 mg PRN Q6HRS PRN PO PAIN / TEMP; Start 01/05/19 at 12:30 Nystatin (Nystop) 1 louis BID TP ; Start 01/05/19 at 21:00 Non-Formulary Medication (Albuterol Sulfate (Albuterol Sulfate Conc Neb Soln)) 2.5 mg PRN Q6HRS PRN NEB SHORTNESS OF BREATH; Start 01/05/19 at 12:30; Status UNV Multi-Ingredient Ointment (Analgesic [place]) 1 louis PRN QID PRN TP MUSCLE PAIN; Start 01/05/19 at 12:45 Levetiracetam 500 mg/Sodium Chloride 100 ml @ 400 mls/hr Q12HR IV Last administered on 01/06/19at 09:27; Start 01/05/19 at 21:00 Sodium Chloride 500 ml @ 0 mls/hr 1X ONCE IV Last administered on 01/05/19at 12:30; Start 01/05/19 at 12:30; Stop 01/05/19 at 12:53; Status DC Dextrose 1,000 ml @ 125 mls/hr Q8H IV Last administered on 01/06/19at 12:40; Start 01/05/19 at 12:45 Linezolid 300 ml @ 300 mls/hr Q12HR IV Last administered on 01/06/19at 09:27; Start 01/05/19 at 21:00 Piperacillin Sod/ Tazobactam Sod 2.25 gm/Sodium Chloride 50 ml @ 100 mls/hr Q8H IV Last administered on 01/06/19at 15:18; Start 01/05/19 at 14:00 Albuterol Sulfate (Ventolin) 2.5 mg PRN Q6HRS PRN NEB SHORTNESS OF BREATH; Start 01/05/19 at 13:00 Lactobacillus Rhamnosus (Culturelle) 1 cap BID PO ; Start 01/05/19 at 21:00 Dopamine HCl/ Dextrose 250 ml @ 9.628 mls/ hr CONT PRN IV SEE I/O RECORD Last administered on 01/06/19at 11:10; Start 01/06/19 at 11:15 Dopamine HCl/ Dextrose 250 ml @ As Directed STK-MED ONCE IV ; Start 01/06/19 at 11:05; Stop 01/06/19 at 11:09; Status DC Active Scripts Active Reported Provera (Medroxyprogesterone Acetate) 5 Mg Tablet 5 Mg PO DAILY Risperdal (Risperidone) 0.25 Mg Tablet 0.125 Mg PO QHS Zyprexa Zydis (Olanzapine) 5 Mg Tab.rapdis 2.5 Mg PO PRN Q2HR PRN Nystatin 15 Gm Powder 1 Louis TP BID Mirtazapine 15 Mg Tablet 7.5 Mg PO HS [place] Greaseless Cream (Methyl Salicylate/Menthol) 57 Gm Cream..g. 1 Louis TP PRN QID PRN Milk Of Magnesia (Magnesium Hydroxide) 2,400 Mg/10 Ml Oral.susp 2,400 Mg PO PRN QHS PRN Maalox Maximum Strength Susp (Mag Hydrox/Al Hydrox/Simeth) 355 Ml Oral.susp 15 Ml PO PRN AFTMEALHC PRN [Dextrose 5% Nacl 9%] 125 Ml IV Depakote Sprinkle (Divalproex Sodium) 125 Mg Cap.sprink 500 Mg PO BID Albuterol Sulfate Conc Neb Soln (Albuterol Sulfate) 2.5 Mg/0.5 Ml Vial.neb 2.5 Mg NEB PRN Q6HRS PRN Tylenol (Acetaminophen) 325 Mg Tablet 650 Mg PO PRN Q6HRS PRN Trazodone Hcl 50 Mg Tablet 25 Mg PO QHS Flomax (Tamsulosin Hcl) 0.4 Mg Cap.er.24h 0.4 Mg PO DAILY Senokot (Sennosides) 8.6 Mg Tablet 8.6 Mg PO DAILY Potassium Chloride 10 Meq Tablet.er 30 Meq PO BID Pentoxifylline 400 Mg Tablet.er 400 Mg PO TID Miralax (Polyethylene Glycol 3350) 17 Gm Powd.pack 17 Gm PO DAILY Meclizine Hcl 25 Mg Tablet 25 Mg PO PRN Q6HRS PRN Lasix (Furosemide) 80 Mg Tablet 100 Mg PO BID Ativan (Lorazepam) 1 Mg Tablet 0.5 Mg PO PRN BID PRN Allergies: Coded Allergies: No Known Drug Allergies (Unverified , 12/20/18) Review of System Cannot be obtained due to mental status changes General: No acute distress HEENT: Atraumatic Lungs: Clear to auscultation Heart: Other (heart rate is irregular) Abdomen: Soft Extremities: No edema VITALS Vital Signs Date Time Temp Pulse Resp B/P (MAP) Pulse Ox O2 Delivery O2 Flow Rate FiO2 01/06/19 16:47 97.3 01/06/19 16:09 Nasal Cannula 2.0 01/06/19 16:08 53 18 118/56 (76) 96 Labs Laboratory Tests Test 01/05/19 11:37 01/05/19 12:26 01/05/19 12:28 01/06/19 05:40 Blood Gas pH 7.44 (7.35-7.46) Blood Gas PCO2 44 mmHg (35-46) Blood Gas PO2 78 mmHg (71-100) Blood Gas HCO3 30 mmol/L (21-28) Arterial Bld O2 Saturation (Calc) 96 % (92-99) FiO2 21 % White Blood Count 5.7 x10^3/uL (4.0-11.0) 4.3 x10^3/uL (4.0-11.0) Red Blood Count 4.88 x10^6/uL (4.30-5.70) 4.38 x10^6/uL (4.30-5.70) Hemoglobin 12.7 g/dL (13.0-17.5) 11.3 g/dL (13.0-17.5) Hematocrit 39.8 % (39.0-53.0) 35.7 % (39.0-53.0) Mean Corpuscular Volume 82 fL (79-100) 82 fL (79-100) Mean Corpuscular Hemoglobin 26 pg (25-35) 26 pg (25-35) Mean Corpuscular Hemoglobin Concent 32 g/dL (31-37) 32 g/dL (31-37) Red Cell Distribution Width 22.5 % (11.5-14.5) 22.3 % (11.5-14.5) Platelet Count 90 x10^3/uL (140-400) 79 x10^3/uL (140-400) Sodium Level 151 mmol/L (136-145) 146 mmol/L (136-145) Potassium Level 4.5 mmol/L (3.5-5.1) 3.5 mmol/L (3.5-5.1) Chloride Level 112 mmol/L (98-107) 110 mmol/L (98-107) Carbon Dioxide Level 31 mmol/L (21-32) 27 mmol/L (21-32) Anion Gap 8 (6-14) 9 (6-14) Blood Urea Nitrogen 45 mg/dL (8-26) 36 mg/dL (8-26) Creatinine 1.4 mg/dL (0.7-1.3) 1.2 mg/dL (0.7-1.3) Estimated GFR (Cockcroft-Gault) 48.9 58.4 BUN/Creatinine Ratio 32 (6-20) 30 (6-20) Glucose Level 103 mg/dL (70-99) 95 mg/dL (70-99) Lactic Acid Level 1.3 mmol/L (0.4-2.0) Calcium Level 9.1 mg/dL (8.5-10.1) 8.6 mg/dL (8.5-10.1) Total Bilirubin 0.2 mg/dL (0.2-1.0) 0.4 mg/dL (0.2-1.0) Aspartate Amino Transf (AST/SGOT) 21 U/L (15-37) 19 U/L (15-37) Alanine Aminotransferase (ALT/SGPT) 22 U/L (16-63) 17 U/L (16-63) Alkaline Phosphatase 88 U/L (46-116) 77 U/L (46-116) Total Protein 6.9 g/dL (6.4-8.2) 6.2 g/dL (6.4-8.2) Albumin 2.6 g/dL (3.4-5.0) 2.3 g/dL (3.4-5.0) Albumin/Globulin Ratio 0.6 (1.0-1.7) 0.6 (1.0-1.7) Urine Collection Type U cath Urine Color Yellow Urine Clarity Cloudy Urine pH 7.5 Urine Specific [place] 1.015 Urine Protein 30 mg/dl (NEG-TRACE) Urine Glucose (UA) Neg mg/dL (NEG) Urine Ketones (Stick) 15 mg/dL (NEG) Urine Blood Trace (NEG) Urine Nitrite Neg (NEG) Urine Bilirubin Neg (NEG) Urine Urobilinogen Dipstick 1 mg/dL (0.2 mg/dL) Urine Leukocyte Esterase Large (NEG) Urine RBC Rare /HPF (0-2) Urine WBC >40 /HPF (0-4) Urine Squamous Epithelial Cells None /LPF Urine Bacteria Few /HPF (0-FEW) [id number]-[id number]-Type Natriuretic Peptide 1902 pg/mL (0-449) Test 01/06/19 14:05 Sodium Level 144 mmol/L (136-145) Potassium Level 3.5 mmol/L (3.5-5.1) Chloride Level 107 mmol/L (98-107) Carbon Dioxide Level 28 mmol/L (21-32) Anion Gap 9 (6-14) Blood Urea Nitrogen 31 mg/dL (8-26) Creatinine 1.2 mg/dL (0.7-1.3) Estimated GFR (Cockcroft-Gault) 58.4 Glucose Level 129 mg/dL (70-99) Calcium Level 9.0 mg/dL (8.5-10.1) Magnesium Level 2.3 mg/dL (1.8-2.4) Assessment/Plan 1. Sick sinus syndrome, atrial fibrillation with slow ventricular rate and si gnificant pauses of approximately 12 seconds on telemetry. Heart rate improved with dopamine infusion but patient continues to have pauses on telemetry. Per family, the issue of pacemaker implantation was discussed in the past in [place], [place] but this was declined. His family is not available at this time. Patient is unable to give any consent due to mental status changes. We will p ursue conservative management for now until we make long-term decisions after discussions with family. He is DNR. 2. Metabolic encephalopathy, sepsis, UTI: Treat per IM Thank you for your consultation OMKAR MORALES MD Jan 06, 2019 17:09
[2019-01-07] VITALS (20 sets, daily range): BP systolic 86–127; BP diastolic 50–78
[2019-01-07] MEDS: IV DEXTROSE 5% 1,000 ML IV SCH ×2 (04:45→12:45)
[2019-01-07] MEDS: PIPERACILLIN/TAZOBACTAM 2.25 GM in IV NORMAL SALINE 50ML 50 ML IV SCH (05:33)
[2019-01-07 07:09] LABS: HEMATOCRIT 37.8 % (39.0-53.0); RED BLOOD COUNT 4.61 x10^6/uL (4.30-5.70); RED CELL DISTRIBUTION WIDTH 21.8 % (11.5-14.5); WHITE BLOOD COUNT 5.4 x10^3/uL (4.0-11.0)
[2019-01-07 07:16] LABS: ALBUMIN 2.2 g/dL (3.4-5.0); ALBUMIN/GLOBULIN RATIO 0.6 (1.0-1.7); CALCIUM 8.4 mg/dL (8.5-10.1); CREATININE 1.1 mg/dL (0.7-1.3); GFR 64.6; POTASSIUM 4.2 mmol/L (3.5-5.1); TOTAL BILIRUBIN 0.4 mg/dL (0.2-1.0); TOTAL PROTEIN 6.2 g/dL (6.4-8.2)
--- NOTE | 2019-01-07 08:34 | PN ---
DATE: 01/06/2019 SUBJECTIVE: The patient was transferred from [facility] on account of hypotension, altered mental status. He has also acute on chronic kidney injury, severe hypernatremia. He was diagnosed with questionable UTI as well as cellulitis and was started on IV vancomycin and IV Zosyn and Zyvox. His kidney function and electrolytes are improving; however, he continued to go into severe sinus pauses, the longest was almost 11 seconds. ____ dropped down to 5 mcg. PHYSICAL EXAMINATION: GENERAL: When I examined him this afternoon, he looked pale, but no jaundice, cyanosis or thyromegaly. No jugular venous distention or limb edema. VITAL SIGNS: His heart rate was 60, blood pressure was 80/57, temperature was 97, respiratory rate was 16, and oxygen saturation was 96% on 2 liters of oxygen. HEAD, EYES, EARS, NOSE AND THROAT: Showed normocephalic, atraumatic. NECK: Supple. HEART: Showed normal first and second heart sounds. No gallop or murmur. CHEST: Clear to auscultation. No crepitation, no rhonchi. ABDOMEN: Distended, soft, nontender. NEUROLOGIC: He continues to be unresponsive, although he grunts and smiles, but does not interact ____. His intake was incompletely recorded, output was 1000. LABORATORY DATA: As of this morning, his serum sodium is down to 146, potassium 3.5, chloride 110, bicarbonate 27, anion gap of 9, BUN 36, creatinine 1.2, estimated GFR was 58 mL per minute. His glucose was 95, calcium was 8.6. Total bilirubin, AST, ALT, alkaline phosphatase were normal. Brain natriuretic peptide was 1900. Total protein was 6.2, albumin 2.3. His white cell count was ____, hemoglobin 11.3, hematocrit ____. Urinalysis shows more than 40 wbc's, there is a large amount of leukocyte esterase. ASSESSMENT: 1. Altered mental status, multifactorial, likely due to hypernatremia together with urinary tract infection as well as bilateral lower extremity cellulitis. 2. Septic shock versus hypovolemic shock for which he has been getting Lasix 100 mg twice a day. 3. Hypernatremia has resolved or resolving. Serum sodium came down from 151-146. 4. Acute kidney injury is also improving. His creatinine came down from 2.5 down to 1.2. 5. He has excessive sinus pauses, the longest was 11 seconds. PLAN: My plan is to continue with IV antibiotic, continue with IV fluid. We will check his magnesium and replenish that if it low. I spoke with his daughter, Alina, and she fully understands that the patient might go into cardiac arrest and he is DNR/DNI; however, if he stabilizes and has no further pauses, they would like him to be transferred to [facility] for his family to see him. KENJI OLSEN MD DR: DO/katya JOB#: [id number] / [id number]
[2019-01-07] MEDS: LACTOBACILLUS RHAMNOSUS GG 1 CAPSULE. PO SCH (08:53)
[2019-01-07] MEDS: NYSTATIN TOPICAL POWDER 15GM BOTTLE. TP SCH (08:53)
--- NOTE | 2019-01-07 14:13 | PDOC3 ---
Discharge Summary Visit Information Admitting Diagnosis: Septic shock Final Diagnosis septic shock Brief Hospital Course Allergies Allergies Coded Allergies Type Severity Reaction Last Updated Verified No Known Drug Allergies 12/20/18 No Vital Signs Vital Signs Date Time Temp Pulse Resp B/P (MAP) Pulse Ox O2 Delivery O2 Flow Rate FiO2 01/07/19 12:03 56 18 97/60 (72) 97 01/07/19 10:33 Room Air 01/07/19 06:45 2.0 01/07/19 05:10 97.8 Lab Results Laboratory Tests Test 01/06/19 05:40 01/06/19 14:05 01/07/19 06:04 White Blood Count 4.3 x10^3/uL (4.0-11.0) 5.4 x10^3/uL (4.0-11.0) Red Blood Count 4.38 x10^6/uL (4.30-5.70) 4.61 x10^6/uL (4.30-5.70) Hemoglobin 11.3 g/dL (13.0-17.5) 12.0 g/dL (13.0-17.5) Hematocrit 35.7 % (39.0-53.0) 37.8 % (39.0-53.0) Mean Corpuscular Volume 82 fL (79-100) 82 fL (79-100) Mean Corpuscular Hemoglobin 26 pg (25-35) 26 pg (25-35) Mean Corpuscular Hemoglobin Concent 32 g/dL (31-37) 32 g/dL (31-37) Red Cell Distribution Width 22.3 % (11.5-14.5) 21.8 % (11.5-14.5) Platelet Count 79 x10^3/uL (140-400) 97 x10^3/uL (140-400) Sodium Level 146 mmol/L (136-145) 144 mmol/L (136-145) 144 mmol/L (136-145) Potassium Level 3.5 mmol/L (3.5-5.1) 3.5 mmol/L (3.5-5.1) 4.2 mmol/L (3.5-5.1) Chloride Level 110 mmol/L (98-107) 107 mmol/L (98-107) 109 mmol/L (98-107) Carbon Dioxide Level 27 mmol/L (21-32) 28 mmol/L (21-32) 28 mmol/L (21-32) Anion Gap 9 (6-14) 9 (6-14) 7 (6-14) Blood Urea Nitrogen 36 mg/dL (8-26) 31 mg/dL (8-26) 22 mg/dL (8-26) Creatinine 1.2 mg/dL (0.7-1.3) 1.2 mg/dL (0.7-1.3) 1.1 mg/dL (0.7-1.3) Estimated GFR (Cockcroft-Gault) 58.4 58.4 64.6 BUN/Creatinine Ratio 30 (6-20) 20 (6-20) Glucose Level 95 mg/dL (70-99) 129 mg/dL (70-99) 76 mg/dL (70-99) Calcium Level 8.6 mg/dL (8.5-10.1) 9.0 mg/dL (8.5-10.1) 8.4 mg/dL (8.5-10.1) Total Bilirubin 0.4 mg/dL (0.2-1.0) 0.4 mg/dL (0.2-1.0) Aspartate Amino Transf (AST/SGOT) 19 U/L (15-37) 22 U/L (15-37) Alanine Aminotransferase (ALT/SGPT) 17 U/L (16-63) 20 U/L (16-63) Alkaline Phosphatase 77 U/L (46-116) 84 U/L (46-116) GL-Igp-Q-Type Natriuretic Peptide 1902 pg/mL (0-449) Total Protein 6.2 g/dL (6.4-8.2) 6.2 g/dL (6.4-8.2) Albumin 2.3 g/dL (3.4-5.0) 2.2 g/dL (3.4-5.0) Albumin/Globulin Ratio 0.6 (1.0-1.7) 0.6 (1.0-1.7) Magnesium Level 2.3 mg/dL (1.8-2.4) Brief Hospital Course The patient is a 78-year-old male with severe dementia, hypertension. He was transferred from the senior behavioral unit for altered mental status. He was also hypotensive. He was hypernatremic. He was given the diagnosis of septic shock due to UTI. He did not have any consolidation on the chest x-ray. His sodium was 151 on admission. He was started on treatment with IV fluids, pressors, antibiotics. The patient was also seen by psychiatry. We were working on his hypernatremia with D5 water. Some of the hyponatremia could be due to intravascular depletion from diuretics. His hypernatremia was improving. The patient's family however wanted to switch care to comfort care given the patient's current psychiatric situation. The patient will be discharged to his facility with hospice. Greater than 30 minutes was spent in the discharge and discharge summary Discharge Information Condition at Discharge: Comment (comfort care) Disposition/Orders: Other (to facility with hospice) Dischare Medications Current Medications Acetaminophen (Tylenol) 650 mg PRN Q6HRS PRN PO PAIN / TEMP; Start 01/05/19 at 12:30; Stop 01/07/19 at 13:43; Status DC Nystatin (Nystop) 1 louis BID TP ; Start 01/05/19 at 21:00; Stop 01/07/19 at 13:43; Status DC Non-Formulary Medication (Albuterol Sulfate (Albuterol Sulfate Conc Neb Soln)) 2.5 mg PRN Q6HRS PRN NEB SHORTNESS OF BREATH; Start 01/05/19 at 12:30; Status UNV Multi-Ingredient Ointment (Analgesic [place]) 1 louis PRN QID PRN TP MUSCLE PAIN; Start 01/05/19 at 12:45; Stop 01/07/19 at 13:43; Status DC Levetiracetam 500 mg/Sodium Chloride 100 ml @ 400 mls/hr Q12HR IV Last administered on 01/07/19at 08:45; Start 01/05/19 at 21:00; Stop 01/07/19 at 13:43; Status DC Sodium Chloride 500 ml @ 0 mls/hr 1X ONCE IV Last administered on 01/05/19at 12:30; Start 01/05/19 at 12:30; Stop 01/05/19 at 12:53; Status DC Dextrose 1,000 ml @ 125 mls/hr Q8H IV Last administered on 01/06/19at 21:27; Start 01/05/19 at 12:45; Stop 01/07/19 at 13:43; Status DC Linezolid 300 ml @ 300 mls/hr Q12HR IV Last administered on 01/07/19at 08:52; Start 01/05/19 at 21:00; Stop 01/07/19 at 13:43; Status DC Piperacillin Sod/ Tazobactam Sod 2.25 gm/Sodium Chloride 50 ml @ 100 mls/hr Q8H IV Last administered on 01/07/19at 05:33; Start 01/05/19 at 14:00; Stop 01/07/19 at 13:43; Status DC Albuterol Sulfate (Ventolin) 2.5 mg PRN Q6HRS PRN NEB SHORTNESS OF BREATH; Start 01/05/19 at 13:00; Stop 01/07/19 at 13:43; Status DC Lactobacillus Rhamnosus (Culturelle) 1 cap BID PO Last administered on 01/07/19at 08:53; Start 01/05/19 at 21:00; Stop 01/07/19 at 13:43; Status DC Dopamine HCl/ Dextrose 250 ml @ 9.628 mls/ hr CONT PRN IV SEE I/O RECORD Last administered on 01/06/19at 11:10; Start 01/06/19 at 11:15; Stop 01/07/19 at 13:43; Status DC Dopamine HCl/ Dextrose 250 ml @ As Directed STK-MED ONCE IV ; Start 01/06/19 at 11:05; Stop 01/06/19 at 11:09; Status DC Active Scripts Active Reported Provera (Medroxyprogesterone Acetate) 5 Mg Tablet 5 Mg PO DAILY Risperdal (Risperidone) 0.25 Mg Tablet 0.125 Mg PO QHS Zyprexa Zydis (Olanzapine) 5 Mg Tab.rapdis 2.5 Mg PO PRN Q2HR PRN Nystatin 15 Gm Powder 1 Louis TP BID Mirtazapine 15 Mg Tablet 7.5 Mg PO HS [place] Greaseless Cream (Methyl Salicylate/Menthol) 57 Gm Cream..g. 1 Louis TP PRN QID PRN Milk Of Magnesia (Magnesium Hydroxide) 2,400 Mg/10 Ml Oral.susp 2,400 Mg PO PRN QHS PRN Maalox Maximum Strength Susp (Mag Hydrox/Al Hydrox/Simeth) 355 Ml Oral.susp 15 Ml PO PRN AFTMEALHC PRN [Dextrose 5% Nacl 9%] 125 Ml IV Depakote Sprinkle (Divalproex Sodium) 125 Mg Cap.sprink 500 Mg PO BID Albuterol Sulfate Conc Neb Soln (Albuterol Sulfate) 2.5 Mg/0.5 Ml Vial.neb 2.5 Mg NEB PRN Q6HRS PRN Tylenol (Acetaminophen) 325 Mg Tablet 650 Mg PO PRN Q6HRS PRN Trazodone Hcl 50 Mg Tablet 25 Mg PO QHS Flomax (Tamsulosin Hcl) 0.4 Mg Cap.er.24h 0.4 Mg PO DAILY Senokot (Sennosides) 8.6 Mg Tablet 8.6 Mg PO DAILY Potassium Chloride 10 Meq Tablet.er 30 Meq PO BID Pentoxifylline 400 Mg Tablet.er 400 Mg PO TID Miralax (Polyethylene Glycol 3350) 17 Gm Powd.pack 17 Gm PO DAILY Meclizine Hcl 25 Mg Tablet 25 Mg PO PRN Q6HRS PRN Lasix (Furosemide) 80 Mg Tablet 100 Mg PO BID Ativan (Lorazepam) 1 Mg Tablet 0.5 Mg PO PRN BID PRN CARMEN PIERCE MD Jan 07, 2019 14:13
== END 2019-01-07 13:30 | disposition hospice, home (50) | DRG 871 ==
LOC: ICU 12:19
PROVIDERS: ADMIT Internal Medicine; ATTEND Internal Medicine
DX: A41.9 Sepsis, unspecified organism (principal); G93.41 Metabolic encephalopathy; R65.21 Severe sepsis with septic shock; E87.0 Hyperosmolality and hypernatremia; N17.9 Acute kidney failure, unspecified; I13.0 Hypertensive heart and chronic kidney disease with heart failure and stage 1 through stage 4 chronic kidney disease, or unspecified chronic kidney disease; N13.8 Other obstructive and reflux uropathy; L03.115 Cellulitis of right lower limb; Z68.41 Body mass index [BMI] 40.0-44.9, adult; I50.32 Chronic diastolic (congestive) heart failure; N39.0 Urinary tract infection, site not specified; L03.116 Cellulitis of left lower limb; N18.9 Chronic kidney disease, unspecified; N40.1 Benign prostatic hyperplasia with lower urinary tract symptoms; E66.01 Morbid (severe) obesity due to excess calories; G47.33 Obstructive sleep apnea (adult) (pediatric); I73.9 Peripheral vascular disease, unspecified; G40.909 Epilepsy, unspecified, not intractable, without status epilepticus; I48.91 Unspecified atrial fibrillation; Z87.891 Personal history of nicotine dependence; Z79.899 Other long term (current) drug therapy; I49.5 Sick sinus syndrome; Z66 Do not resuscitate; F03.90 Unspecified dementia, unspecified severity, without behavioral disturbance, psychotic disturbance, mood disturbance, and anxiety; Z51.5 Encounter for palliative care
CPT/HCPCS: 36415; 36600; 71045; 80048; 80053; 81001; 82803; 83605; 83735; 83880; 85027; 87040; 87086; 93005; J1265; J1953; J2020; J2543; J7040